=== PATIENT | male | born 1965 | race Caucasian/White ===

== ENCOUNTER 2023-07-09 17:33 | Inpatient (IN) | payer MEDICAID ==
[~2023-07-09] VITALS: Ht 172.7 cm; Wt 83.5 kg
[2023-07-09] MEDS ORDERED: IV NS 0.9% 1,000 ML BAG IV ONE (18:00)
[2023-07-09] MEDS ORDERED: CEFEPIME 2 GM in IV D5W 50 ML IV ONE (18:00)
[2023-07-09] MEDS ORDERED: VANCOMYCIN 1 GM in IV D5W 250 ML IV ONE (18:00)
[2023-07-09 18:15] LABS: BASOPHILS % (AUTO) 0.1 % (0.0-2.0); EOSINOPHILS # (AUTO) 0.1 K/uL (0.0-0.7); EOSINOPHILS % (AUTO) 0.3 % (0.0-6.0); HEMATOCRIT 33 % (39-51); HEMOGLOBIN 10.9 g/dL (13.5-17.5); LYMPHOCYTES # (AUTO) 0.8 K/uL (0.8-4.8); LYMPHOCYTES % (AUTO) 4.4 % (20.0-44.0); MEAN CORPUSCULAR HEMOGLOBIN 31 PG (26.0-33.0); MEAN CORPUSCULAR HGB CONC 33 g/dl (31.0-36.0); MEAN CORPUSCULAR VOLUME 94 fL (80-96); MONOCYTES # (AUTO) 1.2 K/uL (0.1-1.30); MONOCYTES % (AUTO) 6.4 % (2.0-12.0); NEUTROPHILS # (AUTO) 16.4 K/uL (1.8-8.9); NEUTROPHILS % (AUTO) 88.8 % (43.0-81.0); PLATELET COUNT (AUTO) 370 K/uL (150-450); RED BLOOD CELL COUNT(AUTO) 3.54 MIL/uL (4.5-6.0); RED CELL DISTRIBUTION WIDTH 16.8 % (11.5-15.0); WHITE BLOOD COUNT (AUTO) 18.5 K/uL (4.3-11.0)
[2023-07-09 18:27] LABS: INR 1.06 (0.91-1.10); PARTIAL THROMBOPLASTIN TIME 27.9 SEC (24.3-34.3); PROTHROMBIN TIME 11.1 SECS (9.2-11.1)
[2023-07-09] MEDS ORDERED: CEFEPIME 2 GM in IV D5W 100 ML IV ONE (18:30)
[2023-07-09] MEDS ORDERED: CHOL100043 GT (18:42)
[2023-07-09] MEDS ORDERED: POLY17PO4 GT (18:42)
[2023-07-09] MEDS ORDERED: NA P133E RC (18:42)
[2023-07-09] MEDS ORDERED: CRAN3875 GT (18:42)
[2023-07-09] MEDS ORDERED: SILV20CR13 TP (18:42)
[2023-07-09] MEDS ORDERED: MAGN400O6 GT (18:42)
[2023-07-09] MEDS ORDERED: NYST5ORA PO (18:42)
[2023-07-09] MEDS ORDERED: MULT-213 GT (18:42)
[2023-07-09] MEDS ORDERED: DOCU50LI GT (18:42)
[2023-07-09] MEDS ORDERED: NUTR250L50 GT (18:42)
[2023-07-09] MEDS ORDERED: ASCO-352 GT (18:42)
[2023-07-09] MEDS ORDERED: CITR30IR IR (18:42)
[2023-07-09] MEDS ORDERED: POVI3780 TP (18:42)
[2023-07-09] MEDS ORDERED: PANT40SU2 GT (18:42)
[2023-07-09] MEDS ORDERED: [UNRECOGNIZED DRUG - CODE] TP (18:42)
[2023-07-09] MEDS ORDERED: CLON0.1T GT (18:42)
[2023-07-09] MEDS ORDERED: FLUC150T GT (18:42)
[2023-07-09] MEDS ORDERED: LEVE500S9 GT (18:42)
[2023-07-09] MEDS ORDERED: ONDA4TAB5 GT (18:42)
[2023-07-09] MEDS ORDERED: ACET-868 GT (18:42)
[2023-07-09] MEDS ORDERED: ENOX40DI9 SQ (18:42)
[2023-07-09] MEDS ORDERED: PRED5TAB48 GT (18:42)
[2023-07-09] MEDS ORDERED: ACET-2605 GT (18:42)
[2023-07-09] MEDS ORDERED: POLY15DR40 EACHEYE (18:42)
[2023-07-09] MEDS ORDERED: BISA10SU11 RC (18:42)
[2023-07-09] MEDS ORDERED: ARGI1POW13 GT (18:42)
[2023-07-09] MEDS ORDERED: IPRA4AER IH ×2 (18:42)
[2023-07-09 18:47] LABS: ALANINE AMINOTRANSFERASE 69 U/L (12-78); ALBUMIN 2.8 g/dL (3.4-5.0); ALKALINE PHOSPHATASE 138 U/L (46-116); ASPARTATE AMINOTRANSFERASE 28 U/L (15-37); BILIRUBIN,DIRECT 0.1 mg/dL (0.0-0.2); BILIRUBIN,TOTAL 0.3 mg/dL (0.2-1.0); CALCIUM, SERUM 10.6 mg/dL (8.5-10.1); CARBON DIOXIDE 35 mmol/L (21-32); CHLORIDE 96 mmol/L (98-107); CREATININE 0.9 mg/dL (0.6-1.3); GLUCOSE 134 mg/dL (74-106); NT-PRO BNP 693 pg/mL (0-125); POTASSIUM 4.5 mmol/L (3.5-5.1); SODIUM SERUM 138 mmol/L (136-145); TOTAL PROTEIN, SERUM 8.9 g/dL (6.4-8.2); UREA NITROGEN, BLOOD 19 mg/dL (7-18)
[2023-07-09 18:55] LABS: LACTIC ACID 2.1 mmol/L (0.4-2.0)
[2023-07-09 20:45] VITALS: BP 104/70; TEMP 98.6; O2SAT 98
[2023-07-09] MEDS ORDERED: Z GUARD REMEDY 4 OZ OINT TP PRN (21:30)
[2023-07-09] MEDS ORDERED: ZOLPIDEM TARTRATE 5 MG TABLET PO PRN (21:30)
[2023-07-09] MEDS ORDERED: MAGNESIUM HYDROXIDE 30 ML UDC PO PRN (21:30)
[2023-07-09] MEDS ORDERED: ONDANSETRON HCL/PF 4 MG/2 ML VIAL IVP PRN (21:30)
[2023-07-09] MEDS ORDERED: ACETAMINOPHEN 325 MG TABLET PO PRN (21:30)
[2023-07-09] MEDS ORDERED: MAG HYDROX/AL HYDROX/SIMETH 30 ML UDC PO PRN (21:30)
[2023-07-09] MEDS: ENOXAPARIN SODIUM 40 MG/0.4 ML DISP.SYRIN SQ SCH (22:26)
[2023-07-09] MEDS ORDERED: PHARMACY TO CHANGE PO MEDS TO GT/NG XX PRN (22:30)
[2023-07-09] MEDS ORDERED: MAG HYDROX/AL HYDROX/SIMETH 30 ML UDC GT PRN (22:35)
[2023-07-09] MEDS ORDERED: ZOLPIDEM TARTRATE 5 MG TABLET GT PRN (22:36)
[2023-07-09] MEDS ORDERED: MAGNESIUM HYDROXIDE 30 ML UDC GT PRN (22:36)
[2023-07-09] MEDS ORDERED: ACETAMINOPHEN 650 MG/20.3 ML UDC GT PRN (23:00)
[2023-07-10] VITALS: BP 119/85; TEMP 98.3; O2SAT 98
[2023-07-10] MEDS ORDERED: CEFEPIME 1 GM VIAL ONE (02:32)
[2023-07-10] MEDS: IV NS 0.9% 1,000 ML IV PRN ×2 (02:36→17:14)
[2023-07-10] MEDS ORDERED: CEFEPIME 2 GM in IV D5W 100 ML IV SCH (03:00)
[2023-07-10 04:00] VITALS: BP 145/90; TEMP 98.1; O2SAT 98
[2023-07-10] MEDS ORDERED: BISACODYL SUPP (10 MG) 10 MG/SUPP.RECT SUPP.RECT RC PRN (06:00)
[2023-07-10] MEDS ORDERED: POLYETHYLENE GLYCOL 3350 17 GM POWD.PACK GT PRN (06:00)
[2023-07-10] MEDS ORDERED: NA PHOS,M-B/NA PHOS,DI-BA 1 EA ENEMA RC PRN (06:00)
[2023-07-10] MEDS ORDERED: MAGNESIUM HYDROXIDE 30 ML UDC GT PRN (06:00)
[2023-07-10] MEDS ORDERED: ACETAMINOPHEN ES 500 MG TABLET GT PRN (06:00)
[2023-07-10 06:38] LABS: BASOPHILS % (AUTO) 0.2 % (0.0-2.0); EOSINOPHILS # (AUTO) 0.3 K/uL (0.0-0.7); EOSINOPHILS % (AUTO) 2.1 % (0.0-6.0); HEMATOCRIT 32 % (39-51); HEMOGLOBIN 10.5 g/dL (13.5-17.5); LYMPHOCYTES # (AUTO) 1.7 K/uL (0.8-4.8); LYMPHOCYTES % (AUTO) 13.2 % (20.0-44.0); MEAN CORPUSCULAR HEMOGLOBIN 31 PG (26.0-33.0); MEAN CORPUSCULAR HGB CONC 32 g/dl (31.0-36.0); MEAN CORPUSCULAR VOLUME 96 fL (80-96); MONOCYTES # (AUTO) 1.1 K/uL (0.1-1.30); MONOCYTES % (AUTO) 8.6 % (2.0-12.0); NEUTROPHILS # (AUTO) 10.1 K/uL (1.8-8.9); NEUTROPHILS % (AUTO) 75.9 % (43.0-81.0); PLATELET COUNT (AUTO) 303 K/uL (150-450); RED BLOOD CELL COUNT(AUTO) 3.38 MIL/uL (4.5-6.0); RED CELL DISTRIBUTION WIDTH 16.9 % (11.5-15.0); WHITE BLOOD COUNT (AUTO) 13.2 K/uL (4.3-11.0)
[2023-07-10 06:49] LABS: CREATININE 0.8 mg/dL (0.6-1.3); MAGNESIUM 2.1 mg/dL (1.8-2.4); PHOSPHORUS 2.5 mg/dL (2.5-4.9); POTASSIUM 3.5 mmol/L (3.5-5.1)
[2023-07-10 08:00] VITALS: BP 124/86; TEMP 99; O2SAT 97
[2023-07-10] MEDS ORDERED: ONDANSETRON 4 MG TAB.RAPDIS GT PRN (08:00)
[2023-07-10] MEDS ORDERED: Medication Not On Formulary EA (Arginine/Ascorbate Sod/Vite AC (Arginaid Powder) 1 EACH) GT SCH (09:00)
[2023-07-10] MEDS ORDERED: POVIDONE IODINE TOP SCH (09:00)
[2023-07-10] MEDS ORDERED: MAG CARB IR SCH (09:00)
[2023-07-10] MEDS ORDERED: [UNRECOGNIZED DRUG - OTHER] IR SCH (09:00)
[2023-07-10] MEDS: PROSOURCE / PROSTAT (PYXIS) 30 ML UDC GT SCH ×2 (09:00→16:55)
[2023-07-10] MEDS ORDERED: GLUCONOLACT IR SCH (09:00)
[2023-07-10] MEDS ORDERED: Medication Not On Formulary EA (Cran/Vitc/Mannose/Inulin/Brom (Uti-Stat Liquid) 30 ML) GT SCH (09:00)
[2023-07-10] MEDS: SILVER SULFADIAZINE 50 GM JAR TP SCH (09:00)
[2023-07-10] MEDS ORDERED: CITRIC AC IR SCH (09:00)
[2023-07-10] MEDS: CLOTRIMAZOLE 1% 15 GM TUBE TP SCH ×2 (09:00→16:53)
[2023-07-10] MEDS: LEVETIRACETAM SOL (5 ML) 100 MG/ML UDC GT SCH ×2 (09:40→20:31)
[2023-07-10] MEDS: DOCUSATE SODIUM LIQ 100 MG/10 ML UDC GT SCH (09:40)
[2023-07-10] MEDS: FLUCONAZOLE (100 MG) 100 MG TABLET GT SCH (09:40)
[2023-07-10] MEDS: MULTIVIT W/MINERALS 1 TAB TABLET GT SCH (09:41)
[2023-07-10] MEDS: PANTOPRAZOLE 40 MG/PACK PACK GT SCH (09:41)
[2023-07-10] MEDS: ASCORBIC ACID 500 MG TABLET GT SCH (09:41)
[2023-07-10] MEDS: CHOLECALCIFEROL 1,000 UNIT TABLET (VIT D3) GT SCH (09:41)
[2023-07-10] MEDS: dexaMETHasone SOD PHOSPHATE 10 MG/ML VIAL IV SCH (09:43)
[2023-07-10] MEDS: VANCOMYCIN 1 GM in IV D5W 250 ML IV SCH ×2 (09:43→20:29)
[2023-07-10] MEDS: JEVITY 1.2 CAL 1,000 ML BOTTLE GT PRN (09:47)
[2023-07-10 12:00] VITALS: BP 124/80; TEMP 98.8; O2SAT 98
[2023-07-10] MEDS: CEFEPIME 2 GM in IV D5W 100 ML IV SCH ×2 (12:44→23:02)
[2023-07-10 16:00] VITALS: BP 143/79; TEMP 98.6; O2SAT 96
[2023-07-10] MEDS: NYSTATIN (PYXIS) 500,000 UNIT/5 ML ORAL.SUSP PO SCH ×2 (16:55→20:31)
[2023-07-10] MEDS: IPRATROPIUM/ALBUTEROL INHALER IH SCH (18:00)
[2023-07-10 20:00] VITALS: BP 142/87; TEMP 98.3; O2SAT 96
[2023-07-10] MEDS: ENOXAPARIN SODIUM 40 MG/0.4 ML DISP.SYRIN SQ SCH (21:33)
[2023-07-11] VITALS: BP 129/89; TEMP 98.3; O2SAT 96
[2023-07-11] MEDS: POLYVINYL ALCOHOL 15 ML BOTTLE EACHEYE PRN ×2 (01:57→10:10)
[2023-07-11 04:00] VITALS: BP 127/95; TEMP 99.4; O2SAT 96
[2023-07-11] MEDS: CEFEPIME 2 GM in IV D5W 100 ML IV SCH ×3 (04:48→21:03)
[2023-07-11] MEDS: IPRATROPIUM/ALBUTEROL INHALER IH SCH ×4 (06:00→18:23)
[2023-07-11 08:00] VITALS: BP 125/79; TEMP 98.3; O2SAT 98
[2023-07-11 08:32] LABS: BASOPHILS % (AUTO) 0.1 % (0.0-2.0); EOSINOPHILS % (AUTO) 0.1 % (0.0-6.0); HEMATOCRIT 29 % (39-51); HEMOGLOBIN 9.2 g/dL (13.5-17.5); LYMPHOCYTES # (AUTO) 1.4 K/uL (0.8-4.8); LYMPHOCYTES % (AUTO) 11.8 % (20.0-44.0); MEAN CORPUSCULAR HEMOGLOBIN 30 PG (26.0-33.0); MEAN CORPUSCULAR HGB CONC 32 g/dl (31.0-36.0); MEAN CORPUSCULAR VOLUME 95 fL (80-96); MONOCYTES % (AUTO) 8.7 % (2.0-12.0); NEUTROPHILS # (AUTO) 9.2 K/uL (1.8-8.9); NEUTROPHILS % (AUTO) 79.3 % (43.0-81.0); PLATELET COUNT (AUTO) 306 K/uL (150-450); RED BLOOD CELL COUNT(AUTO) 3.03 MIL/uL (4.5-6.0); RED CELL DISTRIBUTION WIDTH 16.9 % (11.5-15.0); WHITE BLOOD COUNT (AUTO) 11.6 K/uL (4.3-11.0)
[2023-07-11 08:49] LABS: CALCIUM, SERUM 9.7 mg/dL (8.5-10.1); CREATININE 0.8 mg/dL (0.6-1.3); POTASSIUM 3.7 mmol/L (3.5-5.1)
[2023-07-11] MEDS: CADEXOMER IODINE 40 GM TUBE TP SCH (08:58)
[2023-07-11] MEDS: LEVETIRACETAM SOL (5 ML) 100 MG/ML UDC GT SCH ×2 (08:58→21:03)
[2023-07-11] MEDS: PANTOPRAZOLE 40 MG/PACK PACK GT SCH (08:58)
[2023-07-11] MEDS: FLUCONAZOLE (100 MG) 100 MG TABLET GT SCH (08:59)
[2023-07-11] MEDS: ASCORBIC ACID 500 MG TABLET GT SCH (08:59)
[2023-07-11] MEDS: MULTIVIT W/MINERALS 1 TAB TABLET GT SCH (08:59)
[2023-07-11] MEDS: dexaMETHasone SOD PHOSPHATE 10 MG/ML VIAL IV SCH (08:59)
[2023-07-11] MEDS: DOCUSATE SODIUM LIQ 100 MG/10 ML UDC GT SCH (08:59)
[2023-07-11] MEDS: CHOLECALCIFEROL 1,000 UNIT TABLET (VIT D3) GT SCH (08:59)
[2023-07-11] MEDS: NYSTATIN (PYXIS) 500,000 UNIT/5 ML ORAL.SUSP PO SCH ×4 (08:59→21:03)
[2023-07-11] MEDS: PROSOURCE / PROSTAT (PYXIS) 30 ML UDC GT SCH ×2 (09:01→17:09)
[2023-07-11] MEDS: CLOTRIMAZOLE 1% 15 GM TUBE TP SCH ×3 (09:03→23:55)
[2023-07-11] MEDS: SILVER SULFADIAZINE 50 GM JAR TP SCH (09:04)
[2023-07-11] MEDS: VANCOMYCIN 1 GM in IV D5W 250 ML IV SCH (09:19)
[2023-07-11] MEDS: IV NS 0.9% 1,000 ML IV PRN (09:22)
[2023-07-11 12:00] VITALS: BP 132/84; TEMP 98.6; O2SAT 97
[2023-07-11] MEDS: JEVITY 1.2 CAL 1,000 ML BOTTLE GT PRN (15:07)
[2023-07-11 16:00] VITALS: BP 129/81; TEMP 98.6; O2SAT 97
[2023-07-11 20:00] VITALS: BP 131/76; TEMP 98; O2SAT 97
[2023-07-11] MEDS: ENOXAPARIN SODIUM 40 MG/0.4 ML DISP.SYRIN SQ SCH (21:03)
[2023-07-12] VITALS: BP 125/89; TEMP 99.2; O2SAT 97
[2023-07-12] MEDS: IV NS 0.9% 1,000 ML IV PRN ×2 (01:03→17:02)
[2023-07-12] MEDS: IPRATROPIUM/ALBUTEROL INHALER IH PRN ×4 (01:33→07:55)
[2023-07-12 04:00] VITALS: BP 139/90; TEMP 97.8; O2SAT 100
[2023-07-12] MEDS: CEFEPIME 2 GM in IV D5W 100 ML IV SCH ×3 (05:25→22:01)
[2023-07-12] MEDS: IPRATROPIUM/ALBUTEROL INHALER IH SCH ×4 (06:00→18:00)
[2023-07-12 07:38] LABS: BASOPHILS # (AUTO) 0.1 K/uL (0.0-0.2); BASOPHILS % (AUTO) 0.6 % (0.0-2.0); EOSINOPHILS # (AUTO) 0.6 K/uL (0.0-0.7); EOSINOPHILS % (AUTO) 4.7 % (0.0-6.0); HEMATOCRIT 28 % (39-51); LYMPHOCYTES # (AUTO) 2.1 K/uL (0.8-4.8); LYMPHOCYTES % (AUTO) 17.4 % (20.0-44.0); MEAN CORPUSCULAR HEMOGLOBIN 31 PG (26.0-33.0); MEAN CORPUSCULAR HGB CONC 33 g/dl (31.0-36.0); MEAN CORPUSCULAR VOLUME 95 fL (80-96); MONOCYTES # (AUTO) 1.5 K/uL (0.1-1.30); MONOCYTES % (AUTO) 12.6 % (2.0-12.0); NEUTROPHILS # (AUTO) 7.7 K/uL (1.8-8.9); NEUTROPHILS % (AUTO) 64.7 % (43.0-81.0); PLATELET COUNT (AUTO) 285 K/uL (150-450); RED BLOOD CELL COUNT(AUTO) 2.91 MIL/uL (4.5-6.0); RED CELL DISTRIBUTION WIDTH 16.5 % (11.5-15.0); WHITE BLOOD COUNT (AUTO) 11.9 K/uL (4.3-11.0)
[2023-07-12 08:00] VITALS: BP 145/93; TEMP 98.2; O2SAT 100
[2023-07-12 08:00] LABS: CREATININE 0.8 mg/dL (0.6-1.3); POTASSIUM 3.4 mmol/L (3.5-5.1)
[2023-07-12] MEDS ORDERED: POVIDONE IODINE TOP SCH (09:00)
[2023-07-12] MEDS: VANCOMYCIN HCL 0.75 GM in IV D5W 250 ML IV SCH ×2 (09:01→20:30)
[2023-07-12] MEDS: CLOTRIMAZOLE 1% 15 GM TUBE TP SCH ×4 (09:09→16:03)
[2023-07-12] MEDS: SILVER SULFADIAZINE 50 GM JAR TP SCH (09:10)
[2023-07-12] MEDS: PROSOURCE / PROSTAT (PYXIS) 30 ML UDC GT SCH ×2 (09:10→16:53)
[2023-07-12] MEDS: LEVETIRACETAM SOL (5 ML) 100 MG/ML UDC GT SCH ×2 (09:15→21:10)
[2023-07-12] MEDS: ASCORBIC ACID 500 MG TABLET GT SCH (09:15)
[2023-07-12] MEDS: MULTIVIT W/MINERALS 1 TAB TABLET GT SCH (09:15)
[2023-07-12] MEDS: dexaMETHasone SOD PHOSPHATE 10 MG/ML VIAL IV SCH (09:15)
[2023-07-12] MEDS: NYSTATIN (PYXIS) 500,000 UNIT/5 ML ORAL.SUSP PO SCH ×4 (09:15→21:10)
[2023-07-12] MEDS: CHOLECALCIFEROL 1,000 UNIT TABLET (VIT D3) GT SCH (09:15)
[2023-07-12] MEDS: DOCUSATE SODIUM LIQ 100 MG/10 ML UDC GT SCH (09:15)
[2023-07-12] MEDS: FLUCONAZOLE (100 MG) 100 MG TABLET GT SCH (09:15)
[2023-07-12] MEDS: PANTOPRAZOLE 40 MG/PACK PACK GT SCH (09:16)
[2023-07-12] MEDS: POVIDONE-IODINE OINT 28.4 GM TUBE TP SCH (09:17)
[2023-07-12] MEDS: CADEXOMER IODINE 40 GM TUBE TP SCH (09:46)
[2023-07-12] MEDS ORDERED: POTASSIUM CHLORIDE 20 MEQ POWDER PACKET NG SCH (10:30)
[2023-07-12 12:00] VITALS: BP 147/89; TEMP 98.6; O2SAT 100
[2023-07-12] MEDS: JEVITY 1.2 CAL 1,000 ML BOTTLE GT PRN (12:09)
[2023-07-12 16:00] VITALS: BP 144/88; TEMP 98.2; O2SAT 98
[2023-07-12 20:00] VITALS: BP 144/92; TEMP 97.8; O2SAT 96
[2023-07-12] MEDS: ENOXAPARIN SODIUM 40 MG/0.4 ML DISP.SYRIN SQ SCH (21:11)
[2023-07-13] VITALS (7 sets, daily range): BP systolic 125–153; BP diastolic 80–90; TEMP 97.1–98.3; O2SAT 98–99
[2023-07-13] MEDS: IPRATROPIUM/ALBUTEROL INHALER IH SCH ×5 (02:12→23:24)
[2023-07-13] MEDS: CEFEPIME 2 GM in IV D5W 100 ML IV SCH ×3 (05:55→21:55)
[2023-07-13 07:50] LABS: BASOPHILS % (AUTO) 0.1 % (0.0-2.0); EOSINOPHILS % (AUTO) 0.2 % (0.0-6.0); HEMATOCRIT 30 % (39-51); HEMOGLOBIN 9.8 g/dL (13.5-17.5); LYMPHOCYTES % (AUTO) 11.8 % (20.0-44.0); MEAN CORPUSCULAR HEMOGLOBIN 31 PG (26.0-33.0); MEAN CORPUSCULAR HGB CONC 33 g/dl (31.0-36.0); MEAN CORPUSCULAR VOLUME 95 fL (80-96); NEUTROPHILS % (AUTO) 76.9 % (43.0-81.0); PLATELET COUNT (AUTO) 313 K/uL (150-450); RED BLOOD CELL COUNT(AUTO) 3.17 MIL/uL (4.5-6.0); RED CELL DISTRIBUTION WIDTH 16.3 % (11.5-15.0); WHITE BLOOD COUNT (AUTO) 13.4 K/uL (4.3-11.0)
[2023-07-13 07:51] LABS: LYMPHOCYTES # (AUTO) 1.6 K/uL (0.8-4.8); MONOCYTES # (AUTO) 1.5 K/uL (0.1-1.30); NEUTROPHILS # (AUTO) 10.3 K/uL (1.8-8.9)
[2023-07-13 08:06] LABS: CALCIUM, SERUM 9.3 mg/dL (8.5-10.1); CREATININE 0.7 mg/dL (0.6-1.3)
[2023-07-13] MEDS: VANCOMYCIN HCL 0.75 GM in IV D5W 250 ML IV SCH ×2 (08:10→21:41)
[2023-07-13] MEDS: PANTOPRAZOLE 40 MG/PACK PACK GT SCH (09:52)
[2023-07-13] MEDS: DOCUSATE SODIUM LIQ 100 MG/10 ML UDC GT SCH (09:52)
[2023-07-13] MEDS: MULTIVIT W/MINERALS 1 TAB TABLET GT SCH (09:53)
[2023-07-13] MEDS: FLUCONAZOLE (100 MG) 100 MG TABLET GT SCH (09:53)
[2023-07-13] MEDS: ASCORBIC ACID 500 MG TABLET GT SCH (09:53)
[2023-07-13] MEDS: LEVETIRACETAM SOL (5 ML) 100 MG/ML UDC GT SCH ×2 (09:53→21:40)
[2023-07-13] MEDS: POVIDONE-IODINE OINT 28.4 GM TUBE TP SCH (09:54)
[2023-07-13] MEDS: PROSOURCE / PROSTAT (PYXIS) 30 ML UDC GT SCH ×2 (09:54→16:57)
[2023-07-13] MEDS: dexaMETHasone SOD PHOSPHATE 10 MG/ML VIAL IV SCH (09:54)
[2023-07-13] MEDS: NYSTATIN (PYXIS) 500,000 UNIT/5 ML ORAL.SUSP PO SCH ×4 (09:54→21:40)
[2023-07-13] MEDS: CHOLECALCIFEROL 1,000 UNIT TABLET (VIT D3) GT SCH (09:54)
[2023-07-13] MEDS: CLOTRIMAZOLE 1% 15 GM TUBE TP SCH ×4 (09:55→16:58)
[2023-07-13] MEDS: CADEXOMER IODINE 40 GM TUBE TP SCH (09:55)
[2023-07-13] MEDS: SILVER SULFADIAZINE 50 GM JAR TP SCH (09:55)
[2023-07-13] MEDS: JEVITY 1.2 CAL 1,000 ML BOTTLE GT PRN (10:53)
[2023-07-13] MEDS: IV NS 0.9% 1,000 ML IV PRN (13:00)
[2023-07-13] MEDS: ENOXAPARIN SODIUM 40 MG/0.4 ML DISP.SYRIN SQ SCH (22:50)
[2023-07-14] VITALS: BP 150/96; TEMP 98.4; O2SAT 99
[2023-07-14 04:00] VITALS: BP 152/98; TEMP 98.5; O2SAT 99
[2023-07-14] MEDS: CEFEPIME 2 GM in IV D5W 100 ML IV SCH ×3 (05:17→22:00)
[2023-07-14] MEDS: IV NS 0.9% 1,000 ML IV PRN ×2 (05:25→20:28)
[2023-07-14] MEDS: IPRATROPIUM/ALBUTEROL INHALER IH SCH ×3 (05:56→23:14)
[2023-07-14 07:09] LABS: BASOPHILS % (AUTO) 0.2 % (0.0-2.0); HEMATOCRIT 29 % (39-51); HEMOGLOBIN 9.4 g/dL (13.5-17.5); LYMPHOCYTES # (AUTO) 1.9 K/uL (0.8-4.8); LYMPHOCYTES % (AUTO) 11.8 % (20.0-44.0); MEAN CORPUSCULAR HEMOGLOBIN 30 PG (26.0-33.0); MEAN CORPUSCULAR HGB CONC 32 g/dl (31.0-36.0); MEAN CORPUSCULAR VOLUME 96 fL (80-96); MONOCYTES # (AUTO) 1.4 K/uL (0.1-1.30); MONOCYTES % (AUTO) 8.7 % (2.0-12.0); NEUTROPHILS % (AUTO) 79.3 % (43.0-81.0); PLATELET COUNT (AUTO) 331 K/uL (150-450); RED BLOOD CELL COUNT(AUTO) 3.08 MIL/uL (4.5-6.0); RED CELL DISTRIBUTION WIDTH 16.3 % (11.5-15.0); WHITE BLOOD COUNT (AUTO) 16.4 K/uL (4.3-11.0)
[2023-07-14 07:20] LABS: CREATININE 0.7 mg/dL (0.6-1.3)
[2023-07-14] MEDS: VANCOMYCIN HCL 0.75 GM in IV D5W 250 ML IV SCH ×2 (07:28→20:27)
[2023-07-14 08:00] VITALS: BP 148/95; TEMP 98; O2SAT 99
[2023-07-14] MEDS: CADEXOMER IODINE 40 GM TUBE TP SCH (08:20)
[2023-07-14] MEDS: POVIDONE-IODINE OINT 28.4 GM TUBE TP SCH (08:20)
[2023-07-14] MEDS: CLOTRIMAZOLE 1% 15 GM TUBE TP SCH ×4 (08:23→16:45)
[2023-07-14] MEDS: SILVER SULFADIAZINE 50 GM JAR TP SCH (08:23)
[2023-07-14] MEDS: PROSOURCE / PROSTAT (PYXIS) 30 ML UDC GT SCH ×2 (08:24→16:46)
[2023-07-14] MEDS: CHOLECALCIFEROL 1,000 UNIT TABLET (VIT D3) GT SCH (08:51)
[2023-07-14] MEDS: DOCUSATE SODIUM LIQ 100 MG/10 ML UDC GT SCH (08:51)
[2023-07-14] MEDS: MULTIVIT W/MINERALS 1 TAB TABLET GT SCH (08:51)
[2023-07-14] MEDS: NYSTATIN (PYXIS) 500,000 UNIT/5 ML ORAL.SUSP PO SCH ×4 (08:51→20:27)
[2023-07-14] MEDS: LEVETIRACETAM SOL (5 ML) 100 MG/ML UDC GT SCH ×2 (08:51→20:27)
[2023-07-14] MEDS: ASCORBIC ACID 500 MG TABLET GT SCH (08:51)
[2023-07-14] MEDS: PANTOPRAZOLE 40 MG/PACK PACK GT SCH (08:51)
[2023-07-14] MEDS: FLUCONAZOLE (100 MG) 100 MG TABLET GT SCH (08:52)
[2023-07-14] MEDS: dexaMETHasone SOD PHOSPHATE 10 MG/ML VIAL IV SCH (08:52)
[2023-07-14 12:00] VITALS: BP 148/95; TEMP 98.1; O2SAT 99
[2023-07-14 16:00] VITALS: BP 129/88; TEMP 98; O2SAT 99
[2023-07-14 20:00] VITALS: BP 135/64; TEMP 98.2; O2SAT 99
[2023-07-14] MEDS: JEVITY 1.2 CAL 1,000 ML BOTTLE GT PRN (20:27)
[2023-07-14] MEDS: ENOXAPARIN SODIUM 40 MG/0.4 ML DISP.SYRIN SQ SCH (21:16)
[2023-07-15] VITALS: BP 140/94; TEMP 98.3; O2SAT 99
[2023-07-15 04:00] VITALS: BP 150/92; TEMP 97.9; O2SAT 99
[2023-07-15] MEDS: CEFEPIME 2 GM in IV D5W 100 ML IV SCH ×3 (05:42→21:51)
[2023-07-15] MEDS: IPRATROPIUM/ALBUTEROL INHALER IH SCH ×3 (06:00→18:00)
[2023-07-15 07:41] LABS: CREATININE 0.7 mg/dL (0.6-1.3); HEMATOCRIT 30 % (39-51); HEMOGLOBIN 9.8 g/dL (13.5-17.5); LYMPHOCYTES # (AUTO) 2.1 K/uL (0.8-4.8); LYMPHOCYTES % (AUTO) 13.1 % (20.0-44.0); MEAN CORPUSCULAR HEMOGLOBIN 31 PG (26.0-33.0); MEAN CORPUSCULAR HGB CONC 33 g/dl (31.0-36.0); MEAN CORPUSCULAR VOLUME 95 fL (80-96); MONOCYTES # (AUTO) 1.7 K/uL (0.1-1.30); MONOCYTES % (AUTO) 10.8 % (2.0-12.0); NEUTROPHILS # (AUTO) 11.9 K/uL (1.8-8.9); NEUTROPHILS % (AUTO) 76.1 % (43.0-81.0); PLATELET COUNT (AUTO) 331 K/uL (150-450); RED BLOOD CELL COUNT(AUTO) 3.17 MIL/uL (4.5-6.0); RED CELL DISTRIBUTION WIDTH 16.1 % (11.5-15.0); WHITE BLOOD COUNT (AUTO) 15.7 K/uL (4.3-11.0)
[2023-07-15 08:00] VITALS: BP 130/91; TEMP 98.2; O2SAT 100
[2023-07-15] MEDS: VANCOMYCIN HCL 0.75 GM in IV D5W 250 ML IV SCH ×2 (08:36→20:36)
[2023-07-15] MEDS: NYSTATIN (PYXIS) 500,000 UNIT/5 ML ORAL.SUSP PO SCH ×4 (09:13→20:37)
[2023-07-15] MEDS: PROSOURCE / PROSTAT (PYXIS) 30 ML UDC GT SCH ×2 (09:13→16:16)
[2023-07-15] MEDS: CHOLECALCIFEROL 1,000 UNIT TABLET (VIT D3) GT SCH (09:13)
[2023-07-15] MEDS: PANTOPRAZOLE 40 MG/PACK PACK GT SCH (09:13)
[2023-07-15] MEDS: dexaMETHasone SOD PHOSPHATE 10 MG/ML VIAL IV SCH (09:13)
[2023-07-15] MEDS: ASCORBIC ACID 500 MG TABLET GT SCH (09:13)
[2023-07-15] MEDS: MULTIVIT W/MINERALS 1 TAB TABLET GT SCH (09:13)
[2023-07-15] MEDS: DOCUSATE SODIUM LIQ 100 MG/10 ML UDC GT SCH (09:13)
[2023-07-15 09:15] LABS: LYMPHOCYTES % (MANUAL) 11 % (16-48); MONOCYTES % (MANUAL) 8 % (0-11.0); MYELOCYTES % 2 % (0-0); NEUTROPHILS % (MANUAL) 79 (42-76); PLATELET ESTIMATE ADEQUATE
[2023-07-15] MEDS: FLUCONAZOLE (100 MG) 100 MG TABLET GT SCH (09:15)
[2023-07-15] MEDS: LEVETIRACETAM SOL (5 ML) 100 MG/ML UDC GT SCH ×2 (09:15→20:36)
[2023-07-15] MEDS: CLOTRIMAZOLE 1% 15 GM TUBE TP SCH ×4 (09:33→16:18)
[2023-07-15] MEDS: SILVER SULFADIAZINE 50 GM JAR TP SCH (09:33)
[2023-07-15] MEDS: CADEXOMER IODINE 40 GM TUBE TP SCH (09:33)
[2023-07-15] MEDS: POVIDONE-IODINE OINT 28.4 GM TUBE TP SCH (09:35)
[2023-07-15 12:00] VITALS: BP 156/98; TEMP 98.9; O2SAT 99
[2023-07-15] MEDS ORDERED: CLOT15CR35 TP (13:10)
[2023-07-15] MEDS ORDERED: CADE40GE2 TP (13:10)
[2023-07-15] MEDS ORDERED: LACT-209 GT (13:10)
[2023-07-15] MEDS ORDERED: Prosource GT (13:10)
[2023-07-15] MEDS ORDERED: CEFE2FRO IV (13:10)
[2023-07-15] MEDS ORDERED: PANT40SU2 GT (13:10)
[2023-07-15] MEDS ORDERED: DEXA4TAB PO (13:10)
[2023-07-15] MEDS: IV NS 0.9% 1,000 ML IV PRN (14:17)
[2023-07-15 16:00] VITALS: BP 168/102; TEMP 98.7; O2SAT 99
[2023-07-15] MEDS: JEVITY 1.2 CAL 1,000 ML BOTTLE GT PRN (16:32)
[2023-07-15] MEDS: CLONIDINE HCL 0.1 MG TABLET GT PRN (16:54)
[2023-07-15 20:00] VITALS: BP 156/90; TEMP 97.5; O2SAT 99
[2023-07-15] MEDS: ENOXAPARIN SODIUM 40 MG/0.4 ML DISP.SYRIN SQ SCH (21:51)
[2023-07-16] VITALS: BP 151/93; TEMP 97.9; O2SAT 100
[2023-07-16 04:00] VITALS: BP 160/104; TEMP 98.1; O2SAT 100
[2023-07-16] MEDS: CEFEPIME 2 GM in IV D5W 100 ML IV SCH ×3 (05:50→21:46)
[2023-07-16] MEDS: IV NS 0.9% 1,000 ML IV PRN ×2 (05:58→17:46)
[2023-07-16] MEDS: IPRATROPIUM/ALBUTEROL INHALER IH SCH ×4 (06:40→17:53)
[2023-07-16] MEDS: CLONIDINE HCL 0.1 MG TABLET GT PRN (07:09)
[2023-07-16 07:20] LABS: BASOPHILS % (AUTO) 0.2 % (0.0-2.0); HEMATOCRIT 32 % (39-51); HEMOGLOBIN 10.2 g/dL (13.5-17.5); LYMPHOCYTES % (AUTO) 10.2 % (20.0-44.0); MEAN CORPUSCULAR HEMOGLOBIN 31 PG (26.0-33.0); MEAN CORPUSCULAR HGB CONC 32 g/dl (31.0-36.0); MEAN CORPUSCULAR VOLUME 95 fL (80-96); MONOCYTES # (AUTO) 2.2 K/uL (0.1-1.30); MONOCYTES % (AUTO) 11.3 % (2.0-12.0); NEUTROPHILS % (AUTO) 78.3 % (43.0-81.0); PLATELET COUNT (AUTO) 336 K/uL (150-450); RED BLOOD CELL COUNT(AUTO) 3.34 MIL/uL (4.5-6.0); RED CELL DISTRIBUTION WIDTH 16.6 % (11.5-15.0); WHITE BLOOD COUNT (AUTO) 19.2 K/uL (4.3-11.0)
[2023-07-16 07:37] LABS: CALCIUM, SERUM 9.2 mg/dL (8.5-10.1); CREATININE 0.8 mg/dL (0.6-1.3)
[2023-07-16 08:00] VITALS: BP 136/91; TEMP 98.1; O2SAT 100
[2023-07-16 08:14] LABS: BAND % (MANUAL) 1 % (0.0-5.0); LYMPHOCYTES % (MANUAL) 20 % (16-48); MONOCYTES % (MANUAL) 8 % (0-11.0); MYELOCYTES % 1 % (0-0); NEUTROPHILS % (MANUAL) 70 (42-76); PLATELET ESTIMATE ADEQUATE
[2023-07-16] MEDS: DOCUSATE SODIUM LIQ 100 MG/10 ML UDC GT SCH (09:07)
[2023-07-16] MEDS: NYSTATIN (PYXIS) 500,000 UNIT/5 ML ORAL.SUSP PO SCH ×4 (09:07→21:46)
[2023-07-16] MEDS: ASCORBIC ACID 500 MG TABLET GT SCH (09:07)
[2023-07-16] MEDS: CHOLECALCIFEROL 1,000 UNIT TABLET (VIT D3) GT SCH (09:07)
[2023-07-16] MEDS: PROSOURCE / PROSTAT (PYXIS) 30 ML UDC GT SCH ×2 (09:07→16:52)
[2023-07-16] MEDS: FLUCONAZOLE (100 MG) 100 MG TABLET GT SCH (09:07)
[2023-07-16] MEDS: LEVETIRACETAM SOL (5 ML) 100 MG/ML UDC GT SCH ×2 (09:07→21:46)
[2023-07-16] MEDS: PANTOPRAZOLE 40 MG/PACK PACK GT SCH (09:07)
[2023-07-16] MEDS: dexaMETHasone SOD PHOSPHATE 10 MG/ML VIAL IV SCH (09:08)
[2023-07-16] MEDS: CLOTRIMAZOLE 1% 15 GM TUBE TP SCH ×4 (09:09→16:54)
[2023-07-16] MEDS: SILVER SULFADIAZINE 50 GM JAR TP SCH (09:09)
[2023-07-16] MEDS: CADEXOMER IODINE 40 GM TUBE TP SCH ×2 (09:09→09:24)
[2023-07-16] MEDS: MULTIVIT W/MINERALS 1 TAB TABLET GT SCH (09:10)
[2023-07-16] MEDS: VANCOMYCIN HCL 0.75 GM in IV D5W 250 ML IV SCH ×2 (09:11→20:30)
[2023-07-16] MEDS: POVIDONE-IODINE OINT 28.4 GM TUBE TP SCH (09:25)
[2023-07-16 12:00] VITALS: BP 131/93; TEMP 98; O2SAT 100
[2023-07-16] MEDS: JEVITY 1.2 CAL 1,000 ML BOTTLE GT PRN (12:42)
[2023-07-16 16:00] VITALS: BP 135/93; TEMP 98.1; O2SAT 100
[2023-07-16] MEDS: IPRATROPIUM/ALBUTEROL INHALER IH PRN (17:45)
[2023-07-16 20:35] VITALS: BP 150/84; TEMP 98.9; O2SAT 99
[2023-07-16] MEDS: ENOXAPARIN SODIUM 40 MG/0.4 ML DISP.SYRIN SQ SCH (22:19)
[2023-07-17 00:30] VITALS: BP 133/81; TEMP 98.8; O2SAT 99
[2023-07-17 04:00] VITALS: BP 159/94; TEMP 97.9; O2SAT 100
[2023-07-17] MEDS: CEFEPIME 2 GM in IV D5W 100 ML IV SCH ×3 (05:48→20:35)
[2023-07-17] MEDS: IPRATROPIUM/ALBUTEROL INHALER IH SCH ×6 (05:49→23:41)
[2023-07-17 06:51] LABS: BASOPHILS % (AUTO) 0.1 % (0.0-2.0); EOSINOPHILS % (AUTO) 0.3 % (0.0-6.0); HEMATOCRIT 31 % (39-51); HEMOGLOBIN 10.1 g/dL (13.5-17.5); LYMPHOCYTES # (AUTO) 2.2 K/uL (0.8-4.8); LYMPHOCYTES % (AUTO) 13.5 % (20.0-44.0); MEAN CORPUSCULAR HEMOGLOBIN 31 PG (26.0-33.0); MEAN CORPUSCULAR HGB CONC 33 g/dl (31.0-36.0); MEAN CORPUSCULAR VOLUME 94 fL (80-96); MONOCYTES # (AUTO) 1.6 K/uL (0.1-1.30); MONOCYTES % (AUTO) 9.9 % (2.0-12.0); NEUTROPHILS # (AUTO) 12.5 K/uL (1.8-8.9); NEUTROPHILS % (AUTO) 76.2 % (43.0-81.0); PLATELET COUNT (AUTO) 334 K/uL (150-450); RED BLOOD CELL COUNT(AUTO) 3.26 MIL/uL (4.5-6.0); RED CELL DISTRIBUTION WIDTH 16.8 % (11.5-15.0); WHITE BLOOD COUNT (AUTO) 16.5 K/uL (4.3-11.0)
[2023-07-17 06:57] LABS: CALCIUM, SERUM 9.1 mg/dL (8.5-10.1); CREATININE 0.7 mg/dL (0.6-1.3); POTASSIUM 3.9 mmol/L (3.5-5.1)
[2023-07-17 08:00] VITALS: BP 143/92; TEMP 98.1; O2SAT 100
[2023-07-17] MEDS: VANCOMYCIN HCL 0.75 GM in IV D5W 250 ML IV SCH ×2 (08:00→20:01)
[2023-07-17] MEDS: PROSOURCE / PROSTAT (PYXIS) 30 ML UDC GT SCH ×2 (08:06→16:02)
[2023-07-17] MEDS: DOCUSATE SODIUM LIQ 100 MG/10 ML UDC GT SCH (08:07)
[2023-07-17] MEDS: CHOLECALCIFEROL 1,000 UNIT TABLET (VIT D3) GT SCH (08:07)
[2023-07-17] MEDS: ASCORBIC ACID 500 MG TABLET GT SCH (08:07)
[2023-07-17] MEDS: dexaMETHasone SOD PHOSPHATE 10 MG/ML VIAL IV SCH (08:07)
[2023-07-17] MEDS: PANTOPRAZOLE 40 MG/PACK PACK GT SCH (08:07)
[2023-07-17] MEDS: FLUCONAZOLE (100 MG) 100 MG TABLET GT SCH (08:07)
[2023-07-17] MEDS: NYSTATIN (PYXIS) 500,000 UNIT/5 ML ORAL.SUSP PO SCH ×4 (08:07→20:34)
[2023-07-17] MEDS: MULTIVIT W/MINERALS 1 TAB TABLET GT SCH (08:08)
[2023-07-17] MEDS: LEVETIRACETAM SOL (5 ML) 100 MG/ML UDC GT SCH ×2 (08:08→20:34)
[2023-07-17] MEDS: CLOTRIMAZOLE 1% 15 GM TUBE TP SCH ×4 (08:09→16:03)
[2023-07-17] MEDS: POVIDONE-IODINE OINT 28.4 GM TUBE TP SCH (08:09)
[2023-07-17] MEDS: SILVER SULFADIAZINE 50 GM JAR TP SCH (08:10)
[2023-07-17] MEDS: JEVITY 1.2 CAL 1,000 ML BOTTLE GT PRN (08:17)
[2023-07-17] MEDS: IV NS 0.9% 1,000 ML IV PRN (10:06)
[2023-07-17 12:00] VITALS: BP 155/93; TEMP 98.5; O2SAT 99
[2023-07-17 16:00] VITALS: BP 156/92; TEMP 98.7; O2SAT 98
[2023-07-17 21:00] VITALS: BP 160/91; TEMP 99; O2SAT 98
[2023-07-17] MEDS: ENOXAPARIN SODIUM 40 MG/0.4 ML DISP.SYRIN SQ SCH (21:53)
[2023-07-18] VITALS: BP 144/90; TEMP 99; O2SAT 98
[2023-07-18] MEDS: IV NS 0.9% 1,000 ML IV PRN (01:07)
[2023-07-18] MEDS: JEVITY 1.2 CAL 1,000 ML BOTTLE GT PRN (03:56)
[2023-07-18 04:00] VITALS: BP 138/48; TEMP 98.3; O2SAT 95
[2023-07-18] MEDS: CEFEPIME 2 GM in IV D5W 100 ML IV SCH ×2 (04:02→12:03)
[2023-07-18] MEDS: IPRATROPIUM/ALBUTEROL INHALER IH SCH (06:00)
[2023-07-18 08:00] VITALS: BP 109/55; TEMP 97.7; O2SAT 95
[2023-07-18] MEDS: VANCOMYCIN HCL 0.75 GM in IV D5W 250 ML IV SCH (09:30)
[2023-07-18] MEDS: ASCORBIC ACID 500 MG TABLET GT SCH (09:31)
[2023-07-18] MEDS: DOCUSATE SODIUM LIQ 100 MG/10 ML UDC GT SCH (09:31)
[2023-07-18] MEDS: NYSTATIN (PYXIS) 500,000 UNIT/5 ML ORAL.SUSP PO SCH ×2 (09:31→12:03)
[2023-07-18] MEDS: CHOLECALCIFEROL 1,000 UNIT TABLET (VIT D3) GT SCH (09:31)
[2023-07-18] MEDS: PANTOPRAZOLE 40 MG/PACK PACK GT SCH (09:31)
[2023-07-18] MEDS: MULTIVIT W/MINERALS 1 TAB TABLET GT SCH (09:31)
[2023-07-18] MEDS: dexaMETHasone SOD PHOSPHATE 10 MG/ML VIAL IV SCH (09:31)
[2023-07-18] MEDS: LEVETIRACETAM SOL (5 ML) 100 MG/ML UDC GT SCH (09:31)
[2023-07-18] MEDS: SILVER SULFADIAZINE 50 GM JAR TP SCH (09:48)
[2023-07-18] MEDS: FLUCONAZOLE (100 MG) 100 MG TABLET GT SCH (09:49)
[2023-07-18] MEDS: PROSOURCE / PROSTAT (PYXIS) 30 ML UDC GT SCH (09:50)
[2023-07-18] MEDS: POVIDONE-IODINE OINT 28.4 GM TUBE TP SCH (09:51)
[2023-07-18] MEDS: CLOTRIMAZOLE 1% 15 GM TUBE TP SCH ×2 (09:52)
[2023-07-18] MEDS: CADEXOMER IODINE 40 GM TUBE TP SCH (09:52)
[2023-07-18 12:00] VITALS: BP 142/71; TEMP 98.1; O2SAT 95
[2023-07-18] MEDS ORDERED: JEVITY 1.2 CAL 1,000 ML BOTTLE GT PRN (13:00)
== END 2023-07-18 16:23 | DRG 720 ==
LOC: ER 17:35 → TELE1 20:11
PROVIDERS: ADMIT Student in an Organized Health Care Education/Training Program; ATTEND Nurse Practitioner Acute Care
PROC: 5A1955Z Respiratory Ventilation, Greater than 96 Consecutive Hours (ICD-10-PCS; principal; 2023-07-09)
DX: A41.89 Other specified sepsis (principal); J12.82 Pneumonia due to coronavirus disease 2019; J15.9 Unspecified bacterial pneumonia; J95.851 Ventilator associated pneumonia; L89.94 Pressure ulcer of unspecified site, stage 4; E44.0 Moderate protein-calorie malnutrition; U07.1 COVID-19; E87.20 Acidosis, unspecified; G93.1 Anoxic brain damage, not elsewhere classified; R53.2 Functional quadriplegia; D68.59 Other primary thrombophilia; H05.20 Unspecified exophthalmos; L89.626 Pressure-induced deep tissue damage of left heel; L89.613 Pressure ulcer of right heel, stage 3; E88.09 Other disorders of plasma-protein metabolism, not elsewhere classified; R56.9 Unspecified convulsions; J96.11 Chronic respiratory failure with hypoxia; E86.0 Dehydration; Z99.11 Dependence on respirator [ventilator] status; Z93.1 Gastrostomy status; Z93.0 Tracheostomy status; R13.10 Dysphagia, unspecified; Z86.73 Personal history of transient ischemic attack (TIA), and cerebral infarction without residual deficits; K21.9 Gastro-esophageal reflux disease without esophagitis; Z79.01 Long term (current) use of anticoagulants; Z79.51 Long term (current) use of inhaled steroids; Z79.899 Other long term (current) drug therapy; E03.9 Hypothyroidism, unspecified; J98.11 Atelectasis; D64.9 Anemia, unspecified; L30.4 Erythema intertrigo; L92.9 Granulomatous disorder of the skin and subcutaneous tissue, unspecified; R79.89 Other specified abnormal findings of blood chemistry; M24.561 Contracture, right knee; M24.562 Contracture, left knee; T38.0X5A Adverse effect of glucocorticoids and synthetic analogues, initial encounter; Y92.9 Unspecified place or not applicable; Y95 Nosocomial condition; Y84.8 Other medical procedures as the cause of abnormal reaction of the patient, or of later complication, without mention of misadventure at the time of the procedure; Y92.129 Unspecified place in nursing home as the place of occurrence of the external cause; Z74.09 Other reduced mobility; R53.1 Weakness; R73.03 Prediabetes
CPT/HCPCS: 31720; 36415; 71045-TC; 80048-TC; 80076-TC; 80202-TC; 83605-TC; 83735-TC; 83880; 84100-TC; 84484-TC; 85025-TC; 85378-TC; 85730-TC; 86140-TC; 87040-TC; 87081-TC; 87086-TC; 94003-TC; 94760-TC; 94762-TC; 94799-TC; 99082-TC; A4223; A4623; A6253; A6403; A6407; A7526; C9803; G0378; J0692; J1100; J1650; J1953; J3370; J7030; J7060

== ENCOUNTER 2023-07-27 06:03 | Inpatient (IN) | payer MEDICAID, OTHER ==
[~2023-07-27] VITALS: Ht 170.2 cm; Wt 78.5 kg
[2023-07-27] VITALS (17 sets, daily range): BP systolic 107–132; BP diastolic 78–93; TEMP 98.9; O2SAT 97–99
[~2023-07-27 06:03] MED LIST: ACET-2605 GT; ACET-868 GT; ARGI1POW13 GT; ASCO-352 GT; BISA10SU11 RC; CADE40GE2 TP; CEFE2FRO IV; CHOL100043 GT; CITR30IR IR; CLON0.1T GT; CLOT15CR35 TP; CRAN3875 GT; DEXA4TAB PO; DOCU50LI GT; ENOX40DI9 SQ; FLUC150T GT; IPRA4AER IH; LACT-209 GT; LEVE500S9 GT; MAGN400O6 GT; MULT-213 GT; NA P133E RC; NUTR250L50 GT; NYST5ORA PO; ONDA4TAB5 GT; PANT40SU2 GT; POLY15DR40 EACHEYE; POLY17PO4 GT; POVI3780 TP; Prosource GT; SILV20CR13 TP; [UNRECOGNIZED DRUG - CODE] TP
[2023-07-27] MEDS ORDERED: ACETAMINOPHEN 650 MG/SUPP.RECT RC ONE ×2 (06:23→06:30)
[2023-07-27] MEDS ORDERED: PIPERACI/TAZO 3.375GM/D5W 50ML PB IV ONE (06:23)
[2023-07-27] MEDS ORDERED: AZITHROMYCIN 500 MG in IV D5W 250 ML IV ONE (06:30)
[2023-07-27] MEDS ORDERED: PIPERACILLIN /TAZOBACTAM 3.375 G in IV D5W 50 ML IV ONE (06:30)
[2023-07-27] MEDS ORDERED: IV NS 0.9% 1,000 ML BAG IV ONE (06:30)
[2023-07-27] MEDS ORDERED: VANCOMYCIN 1 GM in IV D5W 250 ML IV ONE (06:30)
[2023-07-27 06:45] LABS: BASOPHILS % (AUTO) 0.3 % (0.0-2.0); EOSINOPHILS # (AUTO) 0.2 K/uL (0.0-0.7); EOSINOPHILS % (AUTO) 1.2 % (0.0-6.0); HEMATOCRIT 43 % (39-51); HEMOGLOBIN 13.9 g/dL (13.5-17.5); LYMPHOCYTES # (AUTO) 1.4 K/uL (0.8-4.8); LYMPHOCYTES % (AUTO) 7.7 % (20.0-44.0); MEAN CORPUSCULAR HEMOGLOBIN 31 PG (26.0-33.0); MEAN CORPUSCULAR HGB CONC 33 g/dl (31.0-36.0); MEAN CORPUSCULAR VOLUME 96 fL (80-96); MONOCYTES # (AUTO) 1.1 K/uL (0.1-1.30); MONOCYTES % (AUTO) 5.7 % (2.0-12.0); NEUTROPHILS # (AUTO) 15.7 K/uL (1.8-8.9); NEUTROPHILS % (AUTO) 85.1 % (43.0-81.0); PLATELET COUNT (AUTO) 389 K/uL (150-450); RED BLOOD CELL COUNT(AUTO) 4.48 MIL/uL (4.5-6.0); RED CELL DISTRIBUTION WIDTH 17.5 % (11.5-15.0); WHITE BLOOD COUNT (AUTO) 18.4 K/uL (4.3-11.0)
[2023-07-27] MEDS ORDERED: NOREPINEPHRINE 8MG/250ML RTU 250 ML IV ONE (06:55)
[2023-07-27 06:56] LABS: CALCIUM, SERUM 9.8 mg/dL (8.5-10.1); CARBON DIOXIDE 32 mmol/L (21-32); CHLORIDE 97 mmol/L (98-107); CREATININE 1.3 mg/dL (0.6-1.3); GLUCOSE 101 mg/dL (74-106); POTASSIUM 4.4 mmol/L (3.5-5.1); SODIUM SERUM 135 mmol/L (136-145); UREA NITROGEN, BLOOD 39 mg/dL (7-18)
[2023-07-27 06:57] LABS: INR 1.04 (0.91-1.10); PARTIAL THROMBOPLASTIN TIME 25.4 SEC (24.3-34.3); PROTHROMBIN TIME 10.9 SECS (9.2-11.1)
[2023-07-27] MEDS ORDERED: NOREPINEPHRINE 8 MG in IV NS 0.9% 250 ML IV ONE (07:00)
[2023-07-27] MEDS ORDERED: VANCOMYCIN 1 GM /D5W 250 ML PB IV ONE (07:09)
[2023-07-27 07:10] LABS: ALANINE AMINOTRANSFERASE 206 U/L (12-78); ALBUMIN 2.9 g/dL (3.4-5.0); ALKALINE PHOSPHATASE 114 U/L (46-116); ASPARTATE AMINOTRANSFERASE 76 U/L (15-37); BILIRUBIN,DIRECT 0.4 mg/dL (0.0-0.2); BILIRUBIN,TOTAL 1.1 mg/dL (0.2-1.0); LACTIC ACID 3.3 mmol/L (0.4-2.0); NT-PRO BNP 1059 pg/mL (0-125); TOTAL PROTEIN, SERUM 8.2 g/dL (6.4-8.2)
[2023-07-27 07:45] LABS: APPEARANCE,URINE CLOUDY (CLEAR); BILIRUBIN,URINE 1+ (NEGATIVE); BLOOD, URINE 2+ Ery/uL (NEGATIVE); COLOR,URINE DARK YELLOW (YELLOW); KETONES,URINE TRACE mg/dL (NEGATIVE); LEUKOCYTE ESTERASE ,URINE 3+ (NEGATIVE); NITRITE, URINE NEGATIVE (NEGATIVE); PROTEIN,URINE 3+ mg/dl (NEGATIVE); UGLUCOSE NEGATIVE (NEGATIVE)
[2023-07-27 07:57] LABS: ADD URINE CULTURE YES; BACTERIA,URINE Many /HPF (None Seen); SQUAMOUS EPITHELIAL CELL,UR Moderate /HPF (None Seen); WBC,URINE 21-50 /HPF (0-3)
[2023-07-27] MEDS ORDERED: ASPIRIN 300 MG/SUPP.RECT RC ONE ×2 (07:59→08:00)
[2023-07-27] MEDS ORDERED: DEXA4TAB GT (08:22)
[2023-07-27] MEDS ORDERED: AMIN30LI2 GT (08:22)
[2023-07-27] MEDS ORDERED: CHLO473M5 MM (08:22)
[2023-07-27] MEDS ORDERED: PETR113O TP (08:22)
[2023-07-27] MEDS ORDERED: LACT-209 GT (08:22)
[2023-07-27] MEDS ORDERED: ONDANSETRON HCL/PF 4 MG/2 ML VIAL IVP PRN (13:00)
[2023-07-27] MEDS ORDERED: ACETAMINOPHEN 325 MG TABLET MC PRN (13:00)
[2023-07-27] MEDS ORDERED: PIPERACILLIN /TAZOBACTAM 3.375 G in IV D5W 50 ML IV SCH (13:00)
[2023-07-27] MEDS ORDERED: Z GUARD REMEDY 4 OZ OINT TP PRN (13:00)
[2023-07-27] MEDS ORDERED: HYDROCODONE/APAP 5/325MG TABLET GT PRN (13:00)
[2023-07-27] MEDS ORDERED: MORPHINE SULFATE INJ 2 MG/ML DISP.SYRIN IV PRN (13:00)
[2023-07-27] MEDS ORDERED: ALBUTEROL FS 2.5 MG/3 ML VIAL.NEB NEB PRN (13:30)
[2023-07-27] MEDS ORDERED: BISACODYL SUPP (10 MG) 10 MG/SUPP.RECT SUPP.RECT RC PRN (13:30)
[2023-07-27] MEDS ORDERED: HOME MED MISCELLANEOUS XX SCH (13:30)
[2023-07-27] MEDS ORDERED: POLYETHYLENE GLYCOL 3350 17 GM POWD.PACK GT PRN (13:30)
[2023-07-27] MEDS ORDERED: NA PHOS,M-B/NA PHOS,DI-BA 1 EA ENEMA RC PRN (13:30)
[2023-07-27] MEDS ORDERED: HOME MED MISCELLANEOUS XX PRN (13:30)
[2023-07-27] MEDS: ENOXAPARIN SODIUM 40 MG/0.4 ML DISP.SYRIN SQ SCH (13:45)
[2023-07-27] MEDS ORDERED: ENOXAPARIN SODIUM 40 MG/0.4 ML DISP.SYRIN SQ ONE (13:46)
[2023-07-27] MEDS ORDERED: PIPERACILLIN /TAZOBACTAM 3.375 G in IV D5W 100 ML IV SCH (14:00)
[2023-07-27] MEDS ORDERED: VITAMINS A AND D 56.7 GM TUBE TP PRN (14:01)
[2023-07-27] MEDS: CEFEPIME 2 GM in IV D5W 100 ML IV SCH ×2 (14:35→20:50)
[2023-07-27] MEDS: HYDROCORTISONE SOD SUCCINATE 100 MG/2 ML VIAL IV SCH ×2 (14:50→20:50)
[2023-07-27] MEDS ORDERED: HYDROCORTISONE SOD SUCCINATE 100 MG/2 ML VIAL ONE (14:52)
[2023-07-27] MEDS: VANCOMYCIN 0.75 GM in IV D5W 250 ML IV SCH (16:35)
[2023-07-27] MEDS ORDERED: NYSTATIN SUSP 100,000 U/ML BOTTLE PO SCH (17:00)
[2023-07-27] MEDS: NYSTATIN (PYXIS) 500,000 UNIT/5 ML ORAL.SUSP PO SCH ×3 (17:00→21:47)
[2023-07-27] MEDS: FLUDROCORTISONE 0.1 MG TABLET GT SCH ×2 (18:35→23:47)
[2023-07-27] MEDS: POLYVINYL ALCOHOL 15 ML BOTTLE EACHEYE SCH ×2 (20:41→23:47)
[2023-07-27] MEDS: CHLORHEXIDINE GLUCONATE 15 ML UDC MM SCH (20:42)
[2023-07-27] MEDS: LEVETIRACETAM SOL (5 ML) 100 MG/ML UDC GT SCH (20:50)
[2023-07-27] MEDS: PROSOURCE / PROSTAT (PYXIS) 30 ML UDC GT SCH (20:51)
[2023-07-27] MEDS ORDERED: NOREPINEPHRINE 8 MG in IV NS 0.9% 242 ML IV PRN (22:30)
[2023-07-27] MEDS: JEVITY 1.2 CAL 1,000 ML BOTTLE GT SCH (22:36)
[2023-07-28] VITALS (82 sets, daily range): BP systolic 89–142; BP diastolic 61–92; TEMP 96.9–98.9; O2SAT 76–100
[2023-07-28] MEDS: VANCOMYCIN 0.75 GM in IV D5W 250 ML IV SCH ×3 (03:30→19:47)
[2023-07-28] MEDS: CEFEPIME 2 GM in IV D5W 100 ML IV SCH ×3 (05:33→21:25)
[2023-07-28] MEDS: HYDROCORTISONE SOD SUCCINATE 100 MG/2 ML VIAL IV SCH ×3 (05:33→20:40)
[2023-07-28] MEDS: FLUDROCORTISONE 0.1 MG TABLET GT SCH ×4 (05:33→23:37)
[2023-07-28 05:56] LABS: BASOPHILS % (AUTO) 0.1 % (0.0-2.0); HEMATOCRIT 30 % (39-51); HEMOGLOBIN 9.8 g/dL (13.5-17.5); LYMPHOCYTES # (AUTO) 1.1 K/uL (0.8-4.8); LYMPHOCYTES % (AUTO) 5.6 % (20.0-44.0); MEAN CORPUSCULAR HEMOGLOBIN 31 PG (26.0-33.0); MEAN CORPUSCULAR HGB CONC 32 g/dl (31.0-36.0); MEAN CORPUSCULAR VOLUME 95 fL (80-96); MONOCYTES # (AUTO) 0.9 K/uL (0.1-1.30); MONOCYTES % (AUTO) 4.7 % (2.0-12.0); NEUTROPHILS # (AUTO) 17.7 K/uL (1.8-8.9); NEUTROPHILS % (AUTO) 89.6 % (43.0-81.0); PLATELET COUNT (AUTO) 273 K/uL (150-450); RED BLOOD CELL COUNT(AUTO) 3.19 MIL/uL (4.5-6.0); RED CELL DISTRIBUTION WIDTH 17.7 % (11.5-15.0); WHITE BLOOD COUNT (AUTO) 19.7 K/uL (4.3-11.0)
[2023-07-28 06:11] LABS: CALCIUM, SERUM 8.8 mg/dL (8.5-10.1); CREATININE 0.7 mg/dL (0.6-1.3); MAGNESIUM 2.2 mg/dL (1.8-2.4); PHOSPHORUS 2.5 mg/dL (2.5-4.9); POTASSIUM 3.8 mmol/L (3.5-5.1)
[2023-07-28] MEDS: ENOXAPARIN SODIUM 40 MG/0.4 ML DISP.SYRIN SQ SCH (08:33)
[2023-07-28] MEDS: LEVETIRACETAM SOL (5 ML) 100 MG/ML UDC GT SCH ×2 (08:34→20:40)
[2023-07-28] MEDS: NYSTATIN (PYXIS) 500,000 UNIT/5 ML ORAL.SUSP PO SCH ×4 (08:34→20:40)
[2023-07-28] MEDS: DOCUSATE SODIUM LIQ 100 MG/10 ML UDC GT SCH (08:34)
[2023-07-28] MEDS: MULTIVITAMINS,THERAGRAN 1 UDTAB TABLET GT SCH (08:35)
[2023-07-28] MEDS: CHOLECALCIFEROL 1,000 UNIT TABLET (VIT D3) GT SCH (08:35)
[2023-07-28] MEDS: CHLORHEXIDINE GLUCONATE 15 ML UDC MM SCH ×2 (08:35→17:04)
[2023-07-28] MEDS: ASCORBIC ACID 500 MG TABLET GT SCH (08:35)
[2023-07-28] MEDS: FLUCONAZOLE (100 MG) 100 MG TABLET PO SCH (08:36)
[2023-07-28] MEDS: PROSOURCE / PROSTAT (PYXIS) 30 ML UDC GT SCH ×2 (08:36→20:40)
[2023-07-28] MEDS: POLYVINYL ALCOHOL 15 ML BOTTLE EACHEYE SCH ×3 (08:37→23:23)
[2023-07-28] MEDS ORDERED: ARGININE/GLUTAMINE/CALCIUM BMB 1 EACH POWD.PACK GT SCH (09:00)
[2023-07-28] MEDS ORDERED: PANTOPRAZOLE 40 MG VIAL IV SCH (09:00)
[2023-07-28 09:01] LABS: ALBUMIN 2.1 g/dL (3.4-5.0); BILIRUBIN,DIRECT 0.2 mg/dL (0.0-0.2); BILIRUBIN,TOTAL 0.7 mg/dL (0.2-1.0); TOTAL PROTEIN, SERUM 6.5 g/dL (6.4-8.2)
[2023-07-28] MEDS: JEVITY 1.2 CAL 1,000 ML BOTTLE GT SCH (21:26)
[2023-07-29] VITALS (21 sets, daily range): BP systolic 116–155; BP diastolic 71–98; TEMP 97.3–98.8; O2SAT 97–100
[2023-07-29] MEDS: VANCOMYCIN 0.75 GM in IV D5W 250 ML IV SCH (03:33)
[2023-07-29 04:54] LABS: BASOPHILS % (AUTO) 0.1 % (0.0-2.0); EOSINOPHILS % (AUTO) 0.1 % (0.0-6.0); HEMATOCRIT 27 % (39-51); HEMOGLOBIN 8.6 g/dL (13.5-17.5); LYMPHOCYTES # (AUTO) 0.8 K/uL (0.8-4.8); LYMPHOCYTES % (AUTO) 5.7 % (20.0-44.0); MEAN CORPUSCULAR HEMOGLOBIN 31 PG (26.0-33.0); MEAN CORPUSCULAR HGB CONC 32 g/dl (31.0-36.0); MEAN CORPUSCULAR VOLUME 95 fL (80-96); MONOCYTES # (AUTO) 0.7 K/uL (0.1-1.30); MONOCYTES % (AUTO) 5.4 % (2.0-12.0); NEUTROPHILS # (AUTO) 11.7 K/uL (1.8-8.9); NEUTROPHILS % (AUTO) 88.7 % (43.0-81.0); PLATELET COUNT (AUTO) 225 K/uL (150-450); RED BLOOD CELL COUNT(AUTO) 2.83 MIL/uL (4.5-6.0); RED CELL DISTRIBUTION WIDTH 17.8 % (11.5-15.0); WHITE BLOOD COUNT (AUTO) 13.2 K/uL (4.3-11.0)
[2023-07-29 05:20] LABS: CREATININE 0.6 mg/dL (0.6-1.3); POTASSIUM 3.9 mmol/L (3.5-5.1)
[2023-07-29] MEDS: FLUDROCORTISONE 0.1 MG TABLET GT SCH ×4 (05:42→23:57)
[2023-07-29] MEDS: HYDROCORTISONE SOD SUCCINATE 100 MG/2 ML VIAL IV SCH ×3 (05:42→21:40)
[2023-07-29] MEDS: CEFEPIME 2 GM in IV D5W 100 ML IV SCH ×3 (05:42→21:41)
[2023-07-29] MEDS: POLYVINYL ALCOHOL 15 ML BOTTLE EACHEYE SCH ×3 (07:53→23:35)
[2023-07-29] MEDS: CHLORHEXIDINE GLUCONATE 15 ML UDC MM SCH ×2 (10:59→18:12)
[2023-07-29] MEDS: ASCORBIC ACID 500 MG TABLET GT SCH (10:59)
[2023-07-29] MEDS: DOCUSATE SODIUM LIQ 100 MG/10 ML UDC GT SCH (10:59)
[2023-07-29] MEDS: MULTIVITAMINS,THERAGRAN 1 UDTAB TABLET GT SCH (10:59)
[2023-07-29] MEDS: CHOLECALCIFEROL 1,000 UNIT TABLET (VIT D3) GT SCH (10:59)
[2023-07-29] MEDS: FLUCONAZOLE (100 MG) 100 MG TABLET PO SCH (10:59)
[2023-07-29] MEDS: ENOXAPARIN SODIUM 40 MG/0.4 ML DISP.SYRIN SQ SCH (11:02)
[2023-07-29] MEDS: NYSTATIN (PYXIS) 500,000 UNIT/5 ML ORAL.SUSP PO SCH ×4 (11:04→21:40)
[2023-07-29] MEDS: LEVETIRACETAM SOL (5 ML) 100 MG/ML UDC GT SCH ×2 (11:04→21:40)
[2023-07-29] MEDS: PROSOURCE / PROSTAT (PYXIS) 30 ML UDC GT SCH ×2 (11:05→21:40)
[2023-07-29] MEDS: ARGININE/GLUTAMINE/CALCIUM BMB 1 EACH POWD.PACK GT SCH ×2 (11:06→18:13)
[2023-07-29] MEDS: GLUCERNA 1.2 1,000 ML BOTTLE NG PRN (18:12)
[2023-07-30] VITALS: BP 150/88; TEMP 99.1; O2SAT 98
[2023-07-30 03:07] LABS: HEPATITIS B CORE AB, TOTAL Positive (Negative)
[2023-07-30 04:00] VITALS: BP 148/81; TEMP 98.4; O2SAT 95
[2023-07-30] MEDS: HYDROCORTISONE SOD SUCCINATE 100 MG/2 ML VIAL IV SCH ×4 (05:09→21:11)
[2023-07-30] MEDS: FLUDROCORTISONE 0.1 MG TABLET GT SCH ×3 (05:10→17:32)
[2023-07-30] MEDS: CEFEPIME 2 GM in IV D5W 100 ML IV SCH ×3 (05:10→21:56)
[2023-07-30 06:20] LABS: BASOPHILS % (AUTO) 0.1 % (0.0-2.0); EOSINOPHILS % (AUTO) 0.2 % (0.0-6.0); HEMATOCRIT 28 % (39-51); HEMOGLOBIN 9.1 g/dL (13.5-17.5); LYMPHOCYTES % (AUTO) 9.7 % (20.0-44.0); MEAN CORPUSCULAR HEMOGLOBIN 31 PG (26.0-33.0); MEAN CORPUSCULAR HGB CONC 33 g/dl (31.0-36.0); MEAN CORPUSCULAR VOLUME 95 fL (80-96); MONOCYTES # (AUTO) 0.5 K/uL (0.1-1.30); MONOCYTES % (AUTO) 5.3 % (2.0-12.0); NEUTROPHILS # (AUTO) 8.5 K/uL (1.8-8.9); NEUTROPHILS % (AUTO) 84.7 % (43.0-81.0); PLATELET COUNT (AUTO) 242 K/uL (150-450); RED BLOOD CELL COUNT(AUTO) 2.91 MIL/uL (4.5-6.0); RED CELL DISTRIBUTION WIDTH 17.6 % (11.5-15.0)
[2023-07-30 07:10] LABS: CALCIUM, SERUM 9.6 mg/dL (8.5-10.1); CREATININE 0.8 mg/dL (0.6-1.3); POTASSIUM 3.4 mmol/L (3.5-5.1)
[2023-07-30] MEDS: POLYVINYL ALCOHOL 15 ML BOTTLE EACHEYE SCH ×3 (07:45→23:58)
[2023-07-30 08:00] VITALS: BP 155/81; TEMP 98.2; O2SAT 96
[2023-07-30] MEDS: DOCUSATE SODIUM LIQ 100 MG/10 ML UDC GT SCH (08:38)
[2023-07-30] MEDS: CHOLECALCIFEROL 1,000 UNIT TABLET (VIT D3) GT SCH (08:38)
[2023-07-30] MEDS: NYSTATIN (PYXIS) 500,000 UNIT/5 ML ORAL.SUSP PO SCH ×4 (08:38→21:17)
[2023-07-30] MEDS: MULTIVITAMINS,THERAGRAN 1 UDTAB TABLET GT SCH (08:39)
[2023-07-30] MEDS: PROSOURCE / PROSTAT (PYXIS) 30 ML UDC GT SCH ×2 (08:39→21:16)
[2023-07-30] MEDS: PANTOPRAZOLE 40 MG/PACK PACK GT SCH (08:39)
[2023-07-30] MEDS: ARGININE/GLUTAMINE/CALCIUM BMB 1 EACH POWD.PACK GT SCH ×2 (08:39→17:32)
[2023-07-30] MEDS: FLUCONAZOLE (100 MG) 100 MG TABLET PO SCH (08:40)
[2023-07-30] MEDS: LEVETIRACETAM SOL (5 ML) 100 MG/ML UDC GT SCH ×2 (08:42→21:16)
[2023-07-30] MEDS: CADEXOMER IODINE 40 GM TUBE TP SCH (09:29)
[2023-07-30] MEDS: CHLORHEXIDINE GLUCONATE 15 ML UDC MM SCH ×2 (09:30→17:32)
[2023-07-30] MEDS: ENOXAPARIN SODIUM 40 MG/0.4 ML DISP.SYRIN SQ SCH (09:30)
[2023-07-30] MEDS: ASCORBIC ACID 500 MG TABLET GT SCH (09:31)
[2023-07-30] MEDS: GLUCERNA 1.2 1,000 ML BOTTLE NG PRN (10:50)
[2023-07-30 12:00] VITALS: BP 152/86; TEMP 98.4; O2SAT 100
[2023-07-30] MEDS ORDERED: POTASSIUM CHLORIDE 20 MEQ POWDER PACKET GT ONE (12:00)
[2023-07-30] MEDS: VANCOMYCIN HCL 0.75 GM in IV D5W 250 ML IV SCH (15:39)
[2023-07-30 16:00] VITALS: BP 160/86; TEMP 97.3; O2SAT 92; O2SAT 96; O2SAT 99
[2023-07-30 20:00] VITALS: BP 142/76; TEMP 97.9; O2SAT 99
[2023-07-31] MEDS: VANCOMYCIN HCL 0.75 GM in IV D5W 250 ML IV SCH ×3 (00:24→16:00)
[2023-07-31] MEDS: FLUDROCORTISONE 0.1 MG TABLET GT SCH ×5 (00:25→23:36)
[2023-07-31 00:56] VITALS: BP 137/72; TEMP 98; O2SAT 97
[2023-07-31 04:00] VITALS: BP 140/75; TEMP 98.4; O2SAT 98
[2023-07-31] MEDS: HYDROCORTISONE SOD SUCCINATE 100 MG/2 ML VIAL IV SCH ×3 (05:31→21:29)
[2023-07-31] MEDS: CEFEPIME 2 GM in IV D5W 100 ML IV SCH ×3 (05:44→22:24)
[2023-07-31] MEDS: GLUCERNA 1.2 1,000 ML BOTTLE NG PRN (05:48)
[2023-07-31 06:01] LABS: BASOPHILS % (AUTO) 0.1 % (0.0-2.0); EOSINOPHILS % (AUTO) 0.1 % (0.0-6.0); HEMATOCRIT 28 % (39-51); HEMOGLOBIN 9.3 g/dL (13.5-17.5); LYMPHOCYTES # (AUTO) 1.2 K/uL (0.8-4.8); LYMPHOCYTES % (AUTO) 18.5 % (20.0-44.0); MEAN CORPUSCULAR HEMOGLOBIN 32 PG (26.0-33.0); MEAN CORPUSCULAR HGB CONC 33 g/dl (31.0-36.0); MEAN CORPUSCULAR VOLUME 95 fL (80-96); MONOCYTES # (AUTO) 0.6 K/uL (0.1-1.30); MONOCYTES % (AUTO) 9.7 % (2.0-12.0); NEUTROPHILS # (AUTO) 4.5 K/uL (1.8-8.9); NEUTROPHILS % (AUTO) 71.6 % (43.0-81.0); PLATELET COUNT (AUTO) 226 K/uL (150-450); RED BLOOD CELL COUNT(AUTO) 2.94 MIL/uL (4.5-6.0); RED CELL DISTRIBUTION WIDTH 17.1 % (11.5-15.0); WHITE BLOOD COUNT (AUTO) 6.3 K/uL (4.3-11.0)
[2023-07-31 06:15] LABS: CALCIUM, SERUM 9.3 mg/dL (8.5-10.1); CREATININE 0.6 mg/dL (0.6-1.3); POTASSIUM 3.1 mmol/L (3.5-5.1)
[2023-07-31 08:00] VITALS: BP 161/88; TEMP 98.6; O2SAT 98
[2023-07-31] MEDS: POLYVINYL ALCOHOL 15 ML BOTTLE EACHEYE SCH ×3 (08:27→23:36)
[2023-07-31] MEDS: CHOLECALCIFEROL 1,000 UNIT TABLET (VIT D3) GT SCH (09:40)
[2023-07-31] MEDS: NYSTATIN (PYXIS) 500,000 UNIT/5 ML ORAL.SUSP PO SCH ×4 (09:40→21:29)
[2023-07-31] MEDS: PANTOPRAZOLE 40 MG/PACK PACK GT SCH (09:41)
[2023-07-31] MEDS: LEVETIRACETAM SOL (5 ML) 100 MG/ML UDC GT SCH ×2 (09:41→21:29)
[2023-07-31] MEDS: CHLORHEXIDINE GLUCONATE 15 ML UDC MM SCH ×2 (09:41→18:02)
[2023-07-31] MEDS: DOCUSATE SODIUM LIQ 100 MG/10 ML UDC GT SCH (09:41)
[2023-07-31] MEDS: PROSOURCE / PROSTAT (PYXIS) 30 ML UDC GT SCH ×2 (09:41→21:30)
[2023-07-31] MEDS: MULTIVITAMINS,THERAGRAN 1 UDTAB TABLET GT SCH (09:41)
[2023-07-31] MEDS: CADEXOMER IODINE 40 GM TUBE TP SCH (09:43)
[2023-07-31] MEDS: ENOXAPARIN SODIUM 40 MG/0.4 ML DISP.SYRIN SQ SCH (09:43)
[2023-07-31] MEDS: ARGININE/GLUTAMINE/CALCIUM BMB 1 EACH POWD.PACK GT SCH ×2 (09:46→17:58)
[2023-07-31] MEDS: ASCORBIC ACID 500 MG TABLET GT SCH (09:48)
[2023-07-31] MEDS ORDERED: POTASSIUM CHLORIDE 20 MEQ POWDER PACKET GT ONE (11:00)
[2023-07-31 12:00] VITALS: BP 154/82; TEMP 99.1; O2SAT 98
[2023-07-31 16:00] VITALS: BP 154/95; TEMP 98.9; O2SAT 99
[2023-07-31 20:00] VITALS: BP 160/89; TEMP 98.8; O2SAT 98
[2023-07-31] MEDS: VANCOMYCIN 1 GM in IV D5W 250ml IV SCH (21:30)
[2023-08-01] VITALS (7 sets, daily range): BP systolic 149–173; BP diastolic 85–99; TEMP 97.3–99; O2SAT 98–99
[2023-08-01] MEDS: GLUCERNA 1.2 1,000 ML BOTTLE NG PRN ×2 (00:46→23:03)
[2023-08-01] MEDS: HYDROCORTISONE SOD SUCCINATE 100 MG/2 ML VIAL IV SCH ×3 (05:40→20:34)
[2023-08-01] MEDS: FLUDROCORTISONE 0.1 MG TABLET GT SCH ×4 (05:41→23:04)
[2023-08-01] MEDS: CEFEPIME 2 GM in IV D5W 100 ML IV SCH ×3 (05:41→21:47)
[2023-08-01 05:50] LABS: BASOPHILS % (AUTO) 0.1 % (0.0-2.0); EOSINOPHILS % (AUTO) 0.2 % (0.0-6.0); HEMATOCRIT 29 % (39-51); HEMOGLOBIN 9.7 g/dL (13.5-17.5); LYMPHOCYTES # (AUTO) 1.3 K/uL (0.8-4.8); LYMPHOCYTES % (AUTO) 16.8 % (20.0-44.0); MEAN CORPUSCULAR HEMOGLOBIN 31 PG (26.0-33.0); MEAN CORPUSCULAR HGB CONC 33 g/dl (31.0-36.0); MEAN CORPUSCULAR VOLUME 94 fL (80-96); MONOCYTES # (AUTO) 0.7 K/uL (0.1-1.30); MONOCYTES % (AUTO) 9.3 % (2.0-12.0); NEUTROPHILS # (AUTO) 5.7 K/uL (1.8-8.9); NEUTROPHILS % (AUTO) 73.6 % (43.0-81.0); PLATELET COUNT (AUTO) 240 K/uL (150-450); RED CELL DISTRIBUTION WIDTH 16.6 % (11.5-15.0); WHITE BLOOD COUNT (AUTO) 7.7 K/uL (4.3-11.0)
[2023-08-01 06:06] LABS: ALBUMIN 2.2 g/dL (3.4-5.0); BILIRUBIN,TOTAL 0.3 mg/dL (0.2-1.0); CALCIUM, SERUM 9.5 mg/dL (8.5-10.1); CREATININE 0.7 mg/dL (0.6-1.3); PHOSPHORUS 3.4 mg/dL (2.5-4.9); TOTAL PROTEIN, SERUM 6.7 g/dL (6.4-8.2)
[2023-08-01] MEDS: CHLORHEXIDINE GLUCONATE 15 ML UDC MM SCH ×2 (08:05→16:17)
[2023-08-01] MEDS: ASCORBIC ACID 500 MG TABLET GT SCH (08:05)
[2023-08-01] MEDS: LEVETIRACETAM SOL (5 ML) 100 MG/ML UDC GT SCH ×2 (08:05→20:32)
[2023-08-01] MEDS: PANTOPRAZOLE 40 MG/PACK PACK GT SCH (08:05)
[2023-08-01] MEDS: NYSTATIN (PYXIS) 500,000 UNIT/5 ML ORAL.SUSP PO SCH ×4 (08:05→20:33)
[2023-08-01] MEDS: CHOLECALCIFEROL 1,000 UNIT TABLET (VIT D3) GT SCH (08:05)
[2023-08-01] MEDS: ENOXAPARIN SODIUM 40 MG/0.4 ML DISP.SYRIN SQ SCH (08:09)
[2023-08-01] MEDS: POLYVINYL ALCOHOL 15 ML BOTTLE EACHEYE SCH ×3 (08:09→22:58)
[2023-08-01] MEDS: CADEXOMER IODINE 40 GM TUBE TP SCH (08:10)
[2023-08-01] MEDS: VANCOMYCIN 1 GM in IV D5W 250ml IV SCH ×2 (08:13→20:37)
[2023-08-01] MEDS: ARGININE/GLUTAMINE/CALCIUM BMB 1 EACH POWD.PACK GT SCH ×2 (08:13→16:17)
[2023-08-01] MEDS: PROSOURCE / PROSTAT (PYXIS) 30 ML UDC GT SCH ×2 (08:13→20:37)
[2023-08-01] MEDS: MULTIVITAMINS,THERAGRAN 1 UDTAB TABLET GT SCH (08:15)
[2023-08-01] MEDS: DOCUSATE SODIUM LIQ 100 MG/10 ML UDC GT SCH (08:15)
[2023-08-01] MEDS ORDERED: POTASSIUM CHLORIDE 20 MEQ POWDER PACKET GT ONE (09:00)
[2023-08-01] MEDS: POTASSIUM CHLORIDE 20 MEQ POWDER PACKET NG SCH ×5 (09:55→14:13)
[2023-08-02] VITALS: BP 146/94; TEMP 98.4; O2SAT 100
[2023-08-02 04:00] VITALS: BP 151/94; TEMP 99; O2SAT 100
[2023-08-02] MEDS: HYDROCORTISONE SOD SUCCINATE 100 MG/2 ML VIAL IV SCH (04:23)
[2023-08-02] MEDS: FLUDROCORTISONE 0.1 MG TABLET GT SCH (05:07)
[2023-08-02] MEDS: CEFEPIME 2 GM in IV D5W 100 ML IV SCH (05:12)
[2023-08-02 05:49] LABS: BASOPHILS % (AUTO) 0.1 % (0.0-2.0); EOSINOPHILS % (AUTO) 0.5 % (0.0-6.0); HEMATOCRIT 31 % (39-51); HEMOGLOBIN 10.3 g/dL (13.5-17.5); LYMPHOCYTES # (AUTO) 1.5 K/uL (0.8-4.8); LYMPHOCYTES % (AUTO) 16.3 % (20.0-44.0); MEAN CORPUSCULAR HEMOGLOBIN 32 PG (26.0-33.0); MEAN CORPUSCULAR HGB CONC 34 g/dl (31.0-36.0); MEAN CORPUSCULAR VOLUME 95 fL (80-96); MONOCYTES # (AUTO) 0.7 K/uL (0.1-1.30); MONOCYTES % (AUTO) 7.8 % (2.0-12.0); NEUTROPHILS # (AUTO) 6.7 K/uL (1.8-8.9); NEUTROPHILS % (AUTO) 75.3 % (43.0-81.0); PLATELET COUNT (AUTO) 249 K/uL (150-450); RED BLOOD CELL COUNT(AUTO) 3.26 MIL/uL (4.5-6.0); WHITE BLOOD COUNT (AUTO) 8.9 K/uL (4.3-11.0)
[2023-08-02 06:43] LABS: ALBUMIN 2.3 g/dL (3.4-5.0); BILIRUBIN,TOTAL 0.3 mg/dL (0.2-1.0); CALCIUM, SERUM 9.6 mg/dL (8.5-10.1); CREATININE 0.7 mg/dL (0.6-1.3); MAGNESIUM 2.1 mg/dL (1.8-2.4); TOTAL PROTEIN, SERUM 6.7 g/dL (6.4-8.2)
[2023-08-02 07:39] LABS: POTASSIUM 3.3 mmol/L (3.5-5.1)
[2023-08-02 08:00] VITALS: BP 150/96; TEMP 98.9; O2SAT 98
[2023-08-02] MEDS: POLYVINYL ALCOHOL 15 ML BOTTLE EACHEYE SCH (08:04)
[2023-08-02] MEDS ORDERED: POTASSIUM CHLORIDE 20 MEQ POWDER PACKET GT ONE (09:00)
[2023-08-03] MEDS ORDERED: POTASSIUM CHLORIDE 20 MEQ POWDER PACKET GT SCH (09:00)
== END 2023-08-02 09:34 | DRG 720 ==
LOC: ER 06:10 → TRANSITION 13:33 → ICU 19:29 → TELE-TD 07-29 19:58 → TELE1 07-30 09:46
PROVIDERS: ADMIT Nurse Practitioner Acute Care
PROC: 5A1955Z Respiratory Ventilation, Greater than 96 Consecutive Hours (ICD-10-PCS; principal; 2023-07-27)
PROC: 02HV33Z Insertion of Infusion Device into Superior Vena Cava, Percutaneous Approach (ICD-10-PCS; 2023-07-27)
PROC: B548ZZA Ultrasonography of Superior Vena Cava, Guidance (ICD-10-PCS; 2023-07-27)
DX: A41.1 Sepsis due to other specified staphylococcus (principal); N17.0 Acute kidney failure with tubular necrosis; R65.21 Severe sepsis with septic shock; G93.41 Metabolic encephalopathy; E43 Unspecified severe protein-calorie malnutrition; R64 Cachexia; E87.20 Acidosis, unspecified; E22.2 Syndrome of inappropriate secretion of antidiuretic hormone; I95.9 Hypotension, unspecified; J15.6 Pneumonia due to other Gram-negative bacteria; L89.613 Pressure ulcer of right heel, stage 3; L89.514 Pressure ulcer of right ankle, stage 4; D68.59 Other primary thrombophilia; Z93.0 Tracheostomy status; Z99.11 Dependence on respirator [ventilator] status; Z20.822 Contact with and (suspected) exposure to COVID-19; Z93.1 Gastrostomy status; Z86.73 Personal history of transient ischemic attack (TIA), and cerebral infarction without residual deficits; Z66 Do not resuscitate; R13.10 Dysphagia, unspecified; K21.9 Gastro-esophageal reflux disease without esophagitis; E11.9 Type 2 diabetes mellitus without complications; G40.909 Epilepsy, unspecified, not intractable, without status epilepticus; Z79.01 Long term (current) use of anticoagulants; D64.9 Anemia, unspecified; E03.9 Hypothyroidism, unspecified; Z79.51 Long term (current) use of inhaled steroids; Z79.899 Other long term (current) drug therapy; N39.0 Urinary tract infection, site not specified; E27.40 Unspecified adrenocortical insufficiency; R53.2 Functional quadriplegia; Z74.01 Bed confinement status; Z86.16 Personal history of COVID-19; J96.10 Chronic respiratory failure, unspecified whether with hypoxia or hypercapnia; H05.20 Unspecified exophthalmos; M24.561 Contracture, right knee; M24.562 Contracture, left knee; L89.626 Pressure-induced deep tissue damage of left heel; I21.A1 Myocardial infarction type 2; H16.209 Unspecified keratoconjunctivitis, unspecified eye; E87.70 Fluid overload, unspecified; E87.6 Hypokalemia; K76.1 Chronic passive congestion of liver; B96.89 Other specified bacterial agents as the cause of diseases classified elsewhere; T84.09 Other mechanical complication of internal joint prosthesis; Y83.8 Other surgical procedures as the cause of abnormal reaction of the patient, or of later complication, without mention of misadventure at the time of the procedure; Z68.27 Body mass index [BMI] 27.0-27.9, adult
CPT/HCPCS: 31720; 36415; 71045-TC; 76705-TC; 80048-TC; 80053-TC; 80076-TC; 80202-TC; 81001; 82533; 83605-TC; 83735-TC; 83880; 84100-TC; 84484-TC; 84550-TC; 85025-TC; 85730-TC; 86704; 86706; 86803; 87040-TC; 87081-TC; 87086-TC; 87186-TC; 87340; 94002-TC; 94003-TC; 94760-TC; 94762-TC; 94799-TC; A4223; A4349; A4623; A6253; A6403; A7526; C9113; C9803; G0378; J0456; J0692; J1650; J1720; J1953; J2543; J3370; J7040; J7050; J7060

== ENCOUNTER 2024-05-17 19:59 | Inpatient (IN) | payer OTHER ==
[~2024-05-17] VITALS: Ht 167.6 cm; Wt 76.2 kg
[~2024-05-17 19:59] MED LIST changes: +AMIN30LI2 GT; -CADE40GE2 TP; -CEFE2FRO IV; +CHLO473M5 MM; -CITR30IR IR; -CLOT15CR35 TP; +DEXA4TAB GT; -DEXA4TAB PO; -NUTR250L50 GT; -PANT40SU2 GT; +PETR113O TP; -Prosource GT; -SILV20CR13 TP; -[UNRECOGNIZED DRUG - CODE] TP
[2024-05-17 20:41] LABS: BASOPHILS # (AUTO) 0.1 K/uL (0.0-0.2); BASOPHILS % (AUTO) 0.7 % (0.0-2.0); EOSINOPHILS # (AUTO) 0.8 K/uL (0.0-0.7); EOSINOPHILS % (AUTO) 6.5 % (0.0-6.0); HEMATOCRIT 34 % (39-51); HEMOGLOBIN 11.3 g/dL (13.5-17.5); LYMPHOCYTES # (AUTO) 1.7 K/uL (0.8-4.8); LYMPHOCYTES % (AUTO) 14.2 % (20.0-44.0); MEAN CORPUSCULAR HEMOGLOBIN 32 PG (26.0-33.0); MEAN CORPUSCULAR HGB CONC 33 g/dl (31.0-36.0); MEAN CORPUSCULAR VOLUME 98 fL (80-96); MONOCYTES # (AUTO) 1.3 K/uL (0.1-1.30); MONOCYTES % (AUTO) 10.8 % (2.0-12.0); NEUTROPHILS # (AUTO) 7.9 K/uL (1.8-8.9); NEUTROPHILS % (AUTO) 67.8 % (43.0-81.0); PLATELET COUNT (AUTO) 221 K/uL (150-450); WHITE BLOOD COUNT (AUTO) 11.6 K/uL (4.3-11.0)
[2024-05-17] MEDS: IV NS 0.9% 1,000 ML BAG IV ONE (20:45)
[2024-05-17] MEDS ORDERED: PIPERACI/TAZO 3.375GM/D5W 50ML PB IV ONE (20:45)
[2024-05-17] MEDS ORDERED: VANCOMYCIN 1 GM /D5W 250 ML PB IV ONE (20:45)
[2024-05-17 20:51] LABS: CALCIUM, SERUM 9.7 mg/dL (8.5-10.1); CARBON DIOXIDE 36 mmol/L (21-32); CHLORIDE 101 mmol/L (98-107); CREATININE 0.7 mg/dL (0.6-1.3); GLUCOSE 107 mg/dL (74-106); POTASSIUM 3.9 mmol/L (3.5-5.1); SODIUM SERUM 142 mmol/L (136-145); UREA NITROGEN, BLOOD 12 mg/dL (7-18)
[2024-05-17 20:57] LABS: ALANINE AMINOTRANSFERASE 38 U/L (12-78); ALBUMIN 2.9 g/dL (3.4-5.0); ALKALINE PHOSPHATASE 97 U/L (46-116); ASPARTATE AMINOTRANSFERASE 10 U/L (15-37); BILIRUBIN,DIRECT 0.1 mg/dL (0.0-0.2); BILIRUBIN,TOTAL 0.3 mg/dL (0.2-1.0); TOTAL PROTEIN, SERUM 7.9 g/dL (6.4-8.2)
[2024-05-17 20:59] LABS: LACTIC ACID 1.1 mmol/L (0.4-2.0)
[2024-05-17] MEDS: PIPERACILLIN /TAZOBACTAM 3.375 G in IV D5W 50 ML IV ONE (21:04)
[2024-05-17 21:19] LABS: INR 1.03 (0.91-1.10); PROTHROMBIN TIME 10.9 SECS (9.2-11.1)
[2024-05-17] MEDS: VANCOMYCIN 1 GM in IV D5W 250 ML IV ONE (21:27)
[2024-05-17 21:33] LABS: BILIRUBIN,URINE NEGATIVE (NEGATIVE); BLOOD, URINE TRACE-INTA Ery/uL (NEGATIVE); COLOR,URINE YELLOW (YELLOW); KETONES,URINE NEGATIVE (NEGATIVE); LEUKOCYTE ESTERASE ,URINE 3+ (NEGATIVE); NITRITE, URINE NEGATIVE (NEGATIVE); PH,URINE 7.5 (5.0-8.0); PROTEIN,URINE NEGATIVE (NEGATIVE); UGLUCOSE NEGATIVE (NEGATIVE); UROBILINOGEN,URINE 0.2 EU/dL (0.2)
[2024-05-17 21:34] LABS: PARTIAL THROMBOPLASTIN TIME 29.1 SEC (24.3-34.3)
[2024-05-17 21:36] LABS: APPEARANCE,URINE SLIGHTLY CLOUDY (CLEAR)
[2024-05-17 22:05] LABS: ADD URINE CULTURE YES; BACTERIA,URINE Few /HPF (None Seen); SQUAMOUS EPITHELIAL CELL,UR Rare /HPF (None Seen)
[2024-05-17] MEDS ORDERED: ONDANSETRON HCL/PF 4 MG/2 ML VIAL IVP PRN (23:00)
[2024-05-17] MEDS ORDERED: ZOLPIDEM TARTRATE 5 MG TABLET PO PRN (23:00)
[2024-05-17] MEDS ORDERED: MAG HYDROX/AL HYDROX/SIMETH 30 ML UDC PO PRN (23:00)
[2024-05-17] MEDS ORDERED: ALBUTEROL FS 2.5 MG/3 ML VIAL.NEB NEB PRN (23:00)
[2024-05-17] MEDS ORDERED: Z GUARD REMEDY 4 OZ OINT TP PRN (23:00)
[2024-05-17] MEDS ORDERED: ACETAMINOPHEN 325 MG TABLET PO PRN (23:00)
[2024-05-17] MEDS ORDERED: IPRATROPIUM NEB FS 0.5 MG/2.5 ML AMPUL.NEB NEB PRN (23:00)
[2024-05-17] MEDS ORDERED: MAGNESIUM HYDROXIDE 30 ML UDC PO PRN (23:00)
[2024-05-18] VITALS (7 sets, daily range): BP systolic 110–121; BP diastolic 70–78; TEMP 98.3–99.7; O2SAT 96–99
[2024-05-18] MEDS: PIPERACILLIN /TAZOBACTAM 3.375 G in IV D5W 50 ML IV ONE (03:30)
[2024-05-18] MEDS: ENOXAPARIN SODIUM 40 MG/0.4 ML DISP.SYRIN SQ SCH (03:32)
[2024-05-18] MEDS: PIPERACI/TAZO 3.375GM/D5W 50ML PB IV ONE (03:33)
[2024-05-18] MEDS: IV NS 0.9% 1,000 ML IV PRN (06:28)
[2024-05-18 07:35] LABS: BASOPHILS % (AUTO) 0.2 % (0.0-2.0); EOSINOPHILS # (AUTO) 0.8 K/uL (0.0-0.7); HEMATOCRIT 32 % (39-51); HEMOGLOBIN 10.4 g/dL (13.5-17.5); LYMPHOCYTES # (AUTO) 1.5 K/uL (0.8-4.8); LYMPHOCYTES % (AUTO) 10.6 % (20.0-44.0); MEAN CORPUSCULAR HEMOGLOBIN 32 PG (26.0-33.0); MEAN CORPUSCULAR HGB CONC 32 g/dl (31.0-36.0); MEAN CORPUSCULAR VOLUME 99 fL (80-96); MONOCYTES # (AUTO) 1.4 K/uL (0.1-1.30); MONOCYTES % (AUTO) 10.3 % (2.0-12.0); NEUTROPHILS # (AUTO) 10.2 K/uL (1.8-8.9); NEUTROPHILS % (AUTO) 72.9 % (43.0-81.0); PLATELET COUNT (AUTO) 191 K/uL (150-450); RED BLOOD CELL COUNT(AUTO) 3.29 MIL/uL (4.5-6.0); RED CELL DISTRIBUTION WIDTH 17.4 % (11.5-15.0)
[2024-05-18 07:44] LABS: ALBUMIN 2.5 g/dL (3.4-5.0); BILIRUBIN,DIRECT 0.2 mg/dL (0.0-0.2); BILIRUBIN,TOTAL 0.5 mg/dL (0.2-1.0); CALCIUM, SERUM 9.2 mg/dL (8.5-10.1); CREATININE 0.7 mg/dL (0.6-1.3); MAGNESIUM 2.2 mg/dL (1.8-2.4); PHOSPHORUS 2.4 mg/dL (2.5-4.9); POTASSIUM 3.4 mmol/L (3.5-5.1); TOTAL PROTEIN, SERUM 7.2 g/dL (6.4-8.2)
[2024-05-18] MEDS ORDERED: CRANBERRY VIT C GT (08:20)
[2024-05-18] MEDS ORDERED: TRIA15CR2 TP (08:20)
[2024-05-18] MEDS ORDERED: PERM60CR6 TP (08:20)
[2024-05-18] MEDS ORDERED: NUT.237L31 GT (08:20)
[2024-05-18] MEDS ORDERED: HYDR-4303 GT (08:20)
[2024-05-18] MEDS ORDERED: ACET-868 GT (08:20)
[2024-05-18] MEDS ORDERED: CARB15DR EACHEYE (08:20)
[2024-05-18] MEDS ORDERED: PANT40TA49 GT (08:20)
[2024-05-18 08:27] LABS: THYROID STIMULATING HORMONE 0.15 uIU/mL (0.358-3.74)
[2024-05-18] MEDS: PANTOPRAZOLE 40 MG VIAL IV SCH (08:37)
[2024-05-18] MEDS: VANCOMYCIN HCL 1.25 GM in IV D5W 250 ML IV SCH (08:38)
[2024-05-18] MEDS: POTASSIUM CL. PREMIX PERIPHER. 50 ML IV SCH (10:20)
[2024-05-18] MEDS ORDERED: GLUCERNA 1.5 1,000 ML BOTTLE GT SCH (12:30)
[2024-05-18] MEDS ORDERED: BISACODYL SUPP (10 MG) 10 MG/SUPP.RECT SUPP.RECT RC PRN (12:30)
[2024-05-18] MEDS ORDERED: POLYETHYLENE GLYCOL 3350 17 GM POWD.PACK GT PRN (12:30)
[2024-05-18] MEDS ORDERED: ACETAMINOPHEN 325 MG TABLET MC PRN (12:30)
[2024-05-18] MEDS ORDERED: HYDROCODONE/APAP 5/325MG TABLET GT PRN (12:30)
[2024-05-18] MEDS ORDERED: HOME MED MISCELLANEOUS XX SCH (12:30)
[2024-05-18] MEDS ORDERED: NA PHOS,M-B/NA PHOS,DI-BA 1 EA ENEMA RC PRN (12:30)
[2024-05-18] MEDS: PIPERACILLIN /TAZOBACTAM 3.375 G in IV D5W 100 ML IV SCH (13:20)
[2024-05-18] MEDS: LEVETIRACETAM SOL (5 ML) 100 MG/ML UDC GT SCH (13:20)
[2024-05-18] MEDS: POLYVINYL ALCOHOL 15 ML BOTTLE OP SCH (13:50)
[2024-05-18] MEDS: Sodium Phosphate 15 MMOL in IV NS 0.9% 245 ML IV ONE (16:08)
[2024-05-18] MEDS: TRIAMCINOLONE ACETONIDE 0.5% 15 GM TUBE TP SCH (16:41)
[2024-05-18] MEDS: CHLORHEXIDINE GLUCONATE 15 ML UDC MM SCH (16:41)
[2024-05-19] VITALS: BP 109/75; TEMP 97.4; O2SAT 99
[2024-05-19 04:00] VITALS: BP 119/74; TEMP 98; O2SAT 100
[2024-05-19 07:44] LABS: CALCIUM, SERUM 8.7 mg/dL (8.5-10.1); CREATININE 0.9 mg/dL (0.6-1.3); POTASSIUM 3.2 mmol/L (3.5-5.1)
[2024-05-19 08:00] VITALS: BP 113/76; TEMP 98.4; O2SAT 100
[2024-05-19] MEDS ORDERED: ENOXAPARIN SODIUM 40 MG/0.4 ML DISP.SYRIN SQ SCH (09:00)
[2024-05-19] MEDS: DOCUSATE SODIUM LIQ 100 MG/10 ML UDC GT SCH (09:00)
[2024-05-19] MEDS: MULTIVITAMIN LIQ 5 ML UDC GT SCH (09:00)
[2024-05-19] MEDS: PANTOPRAZOLE 40 MG TABLET.DR PO SCH (09:00)
[2024-05-19] MEDS ORDERED: POTASSIUM CHLORIDE 20 MEQ POWDER PACKET GT SCH (09:30)
[2024-05-19] MEDS: POTASSIUM CL. PREMIX PERIPHER. 50 ML IV SCH (11:09)
[2024-05-19 12:00] VITALS: BP 109/71; TEMP 98.4; O2SAT 98
[2024-05-19] MEDS: LEVETIRACETAM (500MG) 500 MG in IV NS 0.9% 100 ML IV SCH (15:01)
[2024-05-19 16:00] VITALS: BP 114/77; TEMP 98.6; O2SAT 100
[2024-05-19 20:00] VITALS: BP 123/78; TEMP 98.4; O2SAT 98
[2024-05-19] MEDS: VANCOMYCIN 750 MG in IV D5W 250 ML IV SCH (20:13)
[2024-05-19] MEDS ORDERED: VANCOMYCIN 1 GM in IV D5W 250 ML IV SCH (21:00)
[2024-05-20] VITALS: BP 127/77; TEMP 97.9; O2SAT 99
[2024-05-20 04:00] VITALS: BP 131/87; TEMP 97.5; O2SAT 99
[2024-05-20 07:55] LABS: BASOPHILS % (AUTO) 0.7 % (0.0-2.0); HEMATOCRIT 28 % (39-51); HEMOGLOBIN 9.1 g/dL (13.5-17.5); LYMPHOCYTES # (AUTO) 1.5 K/uL (0.8-4.8); LYMPHOCYTES % (AUTO) 21.2 % (20.0-44.0); MEAN CORPUSCULAR HEMOGLOBIN 33 PG (26.0-33.0); MEAN CORPUSCULAR HGB CONC 33 g/dl (31.0-36.0); MEAN CORPUSCULAR VOLUME 99 fL (80-96); MONOCYTES # (AUTO) 0.8 K/uL (0.1-1.30); MONOCYTES % (AUTO) 11.5 % (2.0-12.0); NEUTROPHILS # (AUTO) 3.7 K/uL (1.8-8.9); NEUTROPHILS % (AUTO) 52.6 % (43.0-81.0); PLATELET COUNT (AUTO) 180 K/uL (150-450); RED CELL DISTRIBUTION WIDTH 17.1 % (11.5-15.0); WHITE BLOOD COUNT (AUTO) 7.1 K/uL (4.3-11.0)
[2024-05-20 08:00] VITALS: BP 136/82; TEMP 97.3; O2SAT 100; O2SAT 99
[2024-05-20 08:13] LABS: CALCIUM, SERUM 8.4 mg/dL (8.5-10.1); CREATININE 0.9 mg/dL (0.6-1.3); MAGNESIUM 2.3 mg/dL (1.8-2.4); PHOSPHORUS 3.1 mg/dL (2.5-4.9); POTASSIUM 3.4 mmol/L (3.5-5.1)
[2024-05-20] MEDS: MULTIVITAMINS,THERAGRAN 1 UDTAB TABLET GT SCH (08:50)
[2024-05-20] MEDS: POTASSIUM CL. PREMIX PERIPHER. 50 ML IV SCH (11:16)
[2024-05-20 12:00] VITALS: BP 121/79; TEMP 97.5; O2SAT 99
[2024-05-20 16:00] VITALS: BP 144/82; TEMP 96.7; O2SAT 99
[2024-05-20 20:00] VITALS: BP 148/96; TEMP 97.1; O2SAT 100
[2024-05-20] MEDS ORDERED: PERMETHRIN 5% CRM 60 GM TUBE TP ONE (21:00)
[2024-05-20] MEDS: DOXYCYCLINE HYCLATE (100 MG) 100 MG TABLET PO SCH (21:00)
[2024-05-20] MEDS: IVERMECTIN 3 MG TABLET PO ONE (21:21)
[2024-05-20] MEDS: PERMETHRIN 5% CRM 60 GM TUBE TP ONE (21:22)
[2024-05-21] VITALS: BP 143/86; TEMP 97.8; O2SAT 100
[2024-05-21 04:00] VITALS: BP 144/96; TEMP 98.5; O2SAT 100
[2024-05-21 07:27] LABS: BASOPHILS % (AUTO) 0.3 % (0.0-2.0); EOSINOPHILS # (AUTO) 0.7 K/uL (0.0-0.7); HEMATOCRIT 31 % (39-51); HEMOGLOBIN 10.2 g/dL (13.5-17.5); LYMPHOCYTES # (AUTO) 1.2 K/uL (0.8-4.8); LYMPHOCYTES % (AUTO) 17.5 % (20.0-44.0); MEAN CORPUSCULAR HEMOGLOBIN 33 PG (26.0-33.0); MEAN CORPUSCULAR HGB CONC 33 g/dl (31.0-36.0); MEAN CORPUSCULAR VOLUME 99 fL (80-96); MONOCYTES # (AUTO) 0.7 K/uL (0.1-1.30); NEUTROPHILS # (AUTO) 4.2 K/uL (1.8-8.9); NEUTROPHILS % (AUTO) 61.2 % (43.0-81.0); PLATELET COUNT (AUTO) 181 K/uL (150-450); RED BLOOD CELL COUNT(AUTO) 3.12 MIL/uL (4.5-6.0); RED CELL DISTRIBUTION WIDTH 16.8 % (11.5-15.0); WHITE BLOOD COUNT (AUTO) 6.8 K/uL (4.3-11.0)
[2024-05-21 07:42] LABS: CALCIUM, SERUM 9.3 mg/dL (8.5-10.1); CREATININE 0.8 mg/dL (0.6-1.3); MAGNESIUM 2.2 mg/dL (1.8-2.4); POTASSIUM 3.4 mmol/L (3.5-5.1)
[2024-05-21 08:00] VITALS: BP 136/87; TEMP 97.7; O2SAT 100
[2024-05-21 08:17] LABS: PHOSPHORUS 3.6 mg/dL (2.5-4.9)
[2024-05-21] MEDS: LORATADINE 10 MG TABLET PO SCH (09:00)
[2024-05-21] MEDS: CEFEPIME 1 GM in IV D5W 50 ML IV SCH (09:03)
[2024-05-21] MEDS: POTASSIUM CL. PREMIX PERIPHER. 50 ML IV SCH (09:47)
[2024-05-21 12:00] VITALS: BP 137/96; TEMP 97.8; O2SAT 100
[2024-05-21] MEDS ORDERED: GLUCERNA 1.5 1,000 ML BOTTLE GT SCH (15:38)
[2024-05-21] MEDS ORDERED: MAGNESIUM HYDROXIDE 30 ML UDC GT PRN (15:39)
[2024-05-21] MEDS ORDERED: ZOLPIDEM TARTRATE 5 MG TABLET GT PRN (15:39)
[2024-05-21] MEDS ORDERED: MAG HYDROX/AL HYDROX/SIMETH 30 ML UDC GT PRN (15:39)
[2024-05-21 16:00] VITALS: BP 137/96; TEMP 97.8; O2SAT 100
[2024-05-21] MEDS ORDERED: ACETAMINOPHEN 650 MG/20.3 ML UDC GT PRN (16:00)
[2024-05-21] MEDS ORDERED: GLUCERNA 1.2 1,000 ML BOTTLE GT SCH (16:00)
[2024-05-21 20:00] VITALS: BP 152/89; TEMP 98.3; O2SAT 100
[2024-05-21] MEDS: DOXYCYCLINE HYCLATE (100 MG) 100 MG TABLET GT SCH (21:30)
[2024-05-22] VITALS: BP 152/84; TEMP 98.5; O2SAT 100
[2024-05-22] MEDS: ENOXAPARIN SODIUM 40 MG/0.4 ML DISP.SYRIN SQ ONE (00:30)
[2024-05-22 04:00] VITALS: BP 132/86; TEMP 98.5; O2SAT 100
[2024-05-22 07:10] LABS: CALCIUM, SERUM 8.8 mg/dL (8.5-10.1); CREATININE 0.7 mg/dL (0.6-1.3); POTASSIUM 3.7 mmol/L (3.5-5.1)
[2024-05-22 07:46] VITALS: O2SAT 100
[2024-05-22] MEDS: GLUCERNA 1.2 1,000 ML BOTTLE GT SCH (07:50)
[2024-05-22 08:00] VITALS: BP 139/79; TEMP 97.9; O2SAT 100
[2024-05-22] MEDS: LORATADINE 10 MG TABLET GT SCH (08:27)
[2024-05-22] MEDS: PANTOPRAZOLE 40 MG/PACK PACK NG SCH (08:27)
[2024-05-22] MEDS: LEVETIRACETAM SOL (5 ML) 100 MG/ML UDC GT SCH (08:27)
[2024-05-22] MEDS ORDERED: LEVETIRACETAM (250 MG) 250 MG TABLET PO SCH (09:00)
[2024-05-22] MEDS ORDERED: LEVO500T90 PO (09:54)
[2024-05-22 12:00] VITALS: BP 142/82; TEMP 97.5; O2SAT 100
== END 2024-05-22 13:25 | DRG 720 ==
LOC: ER 20:00 → TELE1 22:59
PROVIDERS: ADMIT Nurse Practitioner Family; ATTEND Nurse Practitioner Acute Care
PROC: 5A1955Z Respiratory Ventilation, Greater than 96 Consecutive Hours (ICD-10-PCS; principal; 2024-05-17)
PROC: 0DH63UZ Insertion of Feeding Device into Stomach, Percutaneous Approach (ICD-10-PCS; 2024-05-21)
DX: A41.9 Sepsis, unspecified organism (principal); J96.21 Acute and chronic respiratory failure with hypoxia; G93.41 Metabolic encephalopathy; E43 Unspecified severe protein-calorie malnutrition; J15.69 Pneumonia due to other Gram-negative bacteria; L89.514 Pressure ulcer of right ankle, stage 4; J90 Pleural effusion, not elsewhere classified; R64 Cachexia; L89.94 Pressure ulcer of unspecified site, stage 4; E88.09 Other disorders of plasma-protein metabolism, not elsewhere classified; N39.0 Urinary tract infection, site not specified; R13.10 Dysphagia, unspecified; Z86.73 Personal history of transient ischemic attack (TIA), and cerebral infarction without residual deficits; K29.70 Gastritis, unspecified, without bleeding; Z93.0 Tracheostomy status; Z93.1 Gastrostomy status; Z99.11 Dependence on respirator [ventilator] status; I10 Essential (primary) hypertension; K21.9 Gastro-esophageal reflux disease without esophagitis; Z79.01 Long term (current) use of anticoagulants; Z79.899 Other long term (current) drug therapy; Z79.51 Long term (current) use of inhaled steroids; B86 Scabies; D64.9 Anemia, unspecified; D68.59 Other primary thrombophilia; L30.9 Dermatitis, unspecified; Z74.01 Bed confinement status; M24.561 Contracture, right knee; M24.562 Contracture, left knee; R53.2 Functional quadriplegia; Z87.01 Personal history of pneumonia (recurrent); E03.9 Hypothyroidism, unspecified; H05.20 Unspecified exophthalmos; E11.9 Type 2 diabetes mellitus without complications; J98.11 Atelectasis; L89.621 Pressure ulcer of left heel, stage 1; B96.89 Other specified bacterial agents as the cause of diseases classified elsewhere; R56.9 Unspecified convulsions; L98.9 Disorder of the skin and subcutaneous tissue, unspecified
CPT/HCPCS: 31720; 36415; 43246; 71045-TC; 80048-TC; 80076-TC; 80202-TC; 81001; 83605-TC; 83735-TC; 84100-TC; 84132-TC; 84439-TC; 84443-TC; 84480; 84484-TC; 85025-TC; 85730-TC; 87040-TC; 87081-TC; 87086-TC; 94003-TC; 94760-TC; 94762-TC; 94799-TC; 97110-TC; A4223; A6253; A6403; A7526; A9563; G0378; J0692; J1650; J1953; J2543; J2704; J3370; J3371; J3480; J3490; J7030; J7050; J7060; J7120